=== PATIENT | female | born 1955 | race Caucasian/White ===

== ENCOUNTER 2017-03-28 20:40 | Inpatient (IN) | payer SELFPAY ==
[~2017-03-28] VITALS: Ht 170.2 cm; Wt 85.5 kg
[2017-03-28 20:43] VITALS: RESP 18; O2SAT 98
[2017-03-28 20:58] VITALS: BP_SYST 189; BP_SYST 203; BP_DIAS 102; BP_DIAS 103; PULSE 93; RESP 18
[2017-03-28 21:00] VITALS: O2SAT 97
[2017-03-28] MEDS ORDERED: MORPHINE SULFATE 4 MG/ML INJ IV PUSH ONE (21:00)
[2017-03-28 21:21] LABS: APTT (PATIENT) 28.9 SEC (24.3-30.1); INTERNATIONAL NORMALIZED RATIO 0.9 RATIO; PROTHROMBIN TIME - PATIENT 9.8 SEC (9.8-11.6)
[2017-03-28 21:23] LABS: AUTOMATED NEUTROPHIL # 3.4 TH/MM3 (1.8-7.7); BASOPHIL % 0.3 % (0.0-2.0); EOSINOPHIL # 0.1 TH/MM3 (0-0.4); EOSINOPHIL % 1.5 % (0.0-4.0); HEMATOCRIT 39.7 % (35.0-46.0); HEMO FLAGS DIFF FINAL; LYMPH % 37.1 % (9.0-44.0); LYMPHOCYTE # 2.4 TH/MM3 (1.0-4.8); MEAN CELL VOLUME 88.4 FL (80.0-100.0); MEAN CORPUSCULAR HEMOGLOBIN 29.5 PG (27.0-34.0); MEAN CORPUSCULAR HGB CONC 33.4 % (32.0-36.0); MONO % 8.9 % (0.0-8.0); NEUT % 52.2 % (16.0-70.0); PLATELET COUNT 212 TH/MM3 (150-450); RED BLOOD COUNT 4.49 MIL/MM3 (4.00-5.30); RED CELL DISTRIBUTION WIDTH 13.5 % (11.6-17.2); WHITE BLOOD COUNT 6.4 TH/MM3 (4.0-11.0)
--- NOTE | 2017-03-28 21:28 | RADRPT ---
EXAM DATE/TIME: 03/28/2017 20:58 [facility] COMPARISON: No previous studies available for comparison. INDICATIONS : Chest pain starting today MEDICAL HISTORY : None. SURGICAL HISTORY : None. ENCOUNTER: Initial ACUITY: 1 day PAIN SCORE: 5/10 LOCATION: Bilateral chest FINDINGS: A single view of the chest demonstrates the lungs to be symmetrically aerated without evidence of mas s, infiltrate or effusion. The cardiomediastinal contours are unremarkable. Osseous structures are intact. CONCLUSION: No evidence of acute cardiopulmonary disease. Nima Bartlett MD on March 28, 2017 at 21:26 Board Certified Radiologist. This report was verified electronically.
[2017-03-28 21:33] LABS: CREATINE KINASE 106 U/L (26-192)
[2017-03-28 21:36] LABS: ANION GAP 6 MEQ/L (5-15); BICARBONATE 29.1 MEQ/L (21.0-32.0); BLOOD UREA NITROGEN 19 MG/DL (7-18); CHLORIDE 104 MEQ/L (98-107); GLOMERULAR FILTRATION RATE 59 ML/MIN (>89); POTASSIUM 4.2 MEQ/L (3.5-5.1); SODIUM (NA) 139 MEQ/L (136-145)
[2017-03-28 21:45] LABS: CKMB 1.1 NG/ML (0.5-3.6)
[2017-03-28] MEDS ORDERED: HEPARIN-D5W 25,000 U/250 ML 250 ML IV PRN (22:30)
[2017-03-28] MEDS ORDERED: HEPARIN SODIUM - IV 10,000 UNITS/10 ML VIAL IV ONE (22:30)
--- NOTE | 2017-03-28 22:41 | HHI.HP ---
[facility] No Primary Care Physician Admission Diagnosis NSTEMI Diagnoses: (1) NSTEMI (non-ST elevated myocardial infarction) Diagnosis: Principal (2) HTN (hypertension) Diagnosis: Principal (3) Dehydration Diagnosis: Principal Travel History International Travel<30 Days: No Contact w/Intl Traveler <30 Da: No Traveled to Known Affected Are: No History of Present Illness This is a 62-year-old female with no reported PMH who was brought to the ER by EMS with complaints of chest pain x2-3 days. Reports pain worse w/ exertion, occasional radiation to neck. No h/o similar symptoms in the past. Denies SOB or cough. On arrival, BP 203/102, HR 93, O2 sat 97% on 2L NC, Afebrile. CBC essentially unremarkable. Chemistry unremarkable except for GFR 59. Troponin 0.18. INR 0.9. EKG with LBBB, no previous EKG for comparison. Dr. Elkins consulted by ER physician, recommended anticoagulation w/ Heparin and possible cath in am. Pt currently chest pain free. Review of Systems Except as stated in HPI: all other systems reviewed are Neg ROS: 14 point review of systems otherwise negative. Past Family Social History Past Medical History PMH: None Past Surgical History PAST SURGICAL HISTORY: Gynecologic Surgery Allergies: Coded Allergies: No Known Allergies (Unverified , 03/28/17) Family History PAST FAMILY HISTORY: Reviewed. No h/o DM or CAD Social History PAST SOCIAL HISTORY: Negative for alcohol, tobacco or drugs. Physical Exam Vital Signs Vital Signs Date Time Temp Pulse Resp B/P (MAP) Pulse Ox O2 Delivery O2 Flow Rate FiO2 03/28/17 21:00 97 03/28/17 21:00 97 Nasal Cannula 2.00 03/28/17 20:58 93 18 203/102 (135) 189/103 (131) 03/28/17 20:54 97 Nasal Cannula 2.00 03/28/17 20:43 18 98 Physical Exam PE: GENERAL: Middle-aged female in no acute distress. HEENT: PERRLA, EOMI. No scleral icterus or conjunctival pallor. No lid lag or facial droop. CARDIOVASCULAR: Regular rate and rhythm. No obvious murmurs to auscultation. No chest tenderness to palpation. RESPIRATORY: No obvious rhonchi or wheezing. Clear to auscultation. Breath sounds equal bilaterally. GASTROINTESTINAL: Abdomen soft, non-tender, nondistended. BS normal. MUSCULOSKELETAL: Extremities without clubbing, cyanosis, or edema. No obvious deformities. NEUROLOGICAL: Awake, alert and oriented x4. No focal neurologic deficits. Moving both upper and lower extremities spontaneously. Laboratory Laboratory Tests Test 03/28/17 20:51 White Blood Count 6.4 Red Blood Count 4.49 Hemoglobin 13.3 Hematocrit 39.7 Mean Corpuscular Volume 88.4 Mean Corpuscular Hemoglobin 29.5 Mean Corpuscular Hemoglobin Concent 33.4 Red Cell Distribution Width 13.5 Platelet Count 212 Mean Platelet Volume 6.8 Neutrophils (%) (Auto) 52.2 Lymphocytes (%) (Auto) 37.1 Monocytes (%) (Auto) 8.9 Eosinophils (%) (Auto) 1.5 Basophils (%) (Auto) 0.3 Neutrophils # (Auto) 3.4 Lymphocytes # (Auto) 2.4 Monocytes # (Auto) 0.6 Eosinophils # (Auto) 0.1 Basophils # (Auto) 0.0 CBC Comment DIFF FINAL Differential Comment Prothrombin Time 9.8 Prothromb Time International Ratio 0.9 Activated Partial Thromboplast Time 28.9 Blood Urea Nitrogen 19 Creatinine 0.95 Random Glucose 119 Calcium Level 9.1 Sodium Level 139 Potassium Level 4.2 Chloride Level 104 Carbon Dioxide Level 29.1 Anion Gap 6 Estimat Glomerular Filtration Rate 59 Total Creatine Kinase 106 Creatine Kinase MB 1.1 Troponin I 0.18 Lipase 179 Result Diagram: 03/28/17205003/28/172050 Caprini VTE Risk Assessment Caprini VTE Risk Assessment: Mod/High Risk (score >= 2) Caprini Risk Assessment Model Point Value = 1 Point Value = 2 Point Value = 3 Point Value = 5 Age 41-60 Minor surgery BMI > 25 kg/m2 Swollen legs Varicose veins or History of unexplained or recurrent spontaneous Oral contraceptives or hormone replacement Sepsis (< 1 month) Serious lung disease, including pneumonia (< 1 month) Abnormal pulmonary function Acute myocardial infarction Congestive heart failure (< 1 month) History of inflammatory bowel disease Medical patient at bed rest Age 61-74 Arthroscopic surgery Major open surgery (> 45 min) Laparoscopic surgery (> 45 min) Malignancy Confined to bed (> 72 hours) Immobilizing plaster cast Central venous access Age >= 75 History of VTE Family history of VTE Factor V Leiden Prothrombin [id number] Lupus anticoagulant Anticardiolipin antibodies Elevated serum homocysteine Heparin-induced thrombocytopenia Other congenital or acquired thrombophilia Stroke (< 1 month) Elective arthroplasty Hip, pelvis, or leg fracture Acute spinal cord injury (< 1 month) Prophylaxis Regimen Total Risk Factor Score Risk Level Prophylaxis Regimen 0-1 Low Early ambulation 2 Moderate Order ONE of the following: *Sequential Compression Device (SCD) *Heparin 5000 units SQ BID 3-4 Higher Order ONE of the following medications: *Heparin 5000 units SQ TID *Enoxaparin/Lovenox 40 mg SQ daily (WT < 150 kg, CrCl > 30 mL/min) *Enoxaparin/Lovenox 30 mg SQ daily (WT < 150 kg, CrCl > 10-29 mL/min) *Enoxaparin/Lovenox 30 mg SQ BID (WT < 150 kg, CrCl > 30 mL/min) AND/OR *Sequential Compression Device (SCD) 5 or more Highest Order ONE of the following medications: *Heparin 5000 units SQ TID (Preferred with Epidurals) *Enoxaparin/Lovenox 40 mg SQ daily (WT < 150 kg, CrCl > 30 mL/min) *Enoxaparin/Lovenox 30 mg SQ daily (WT < 150 kg, CrCl > 10-29 mL/min) *Enoxaparin/Lovenox 30 mg SQ BID (WT < 150 kg, CrCl > 30 mL/min) AND *Sequential Compression Device (SCD) Assessment and Plan Problem List: (1) NSTEMI (non-ST elevated myocardial infarction) ICD Code: I21.4 - Non-ST elevation (NSTEMI) myocardial infarction Status: Acute (2) HTN (hypertension) ICD Code: I10 - Essential (primary) hypertension (3) Dehydration ICD Code: E86.0 - Dehydration Assessment and Plan A/P: 1. NSTEMI: intermittent c/o chest pain w/ exertion x2-3 days, Trop 0.18, EKG w / LBBB no previous EKG for comparison. Dr. Elkins consulted by ER physician, recommended anticoagulation w/ possible cath in am. Keep NPO, IVF, continue Heparin gtt, NTG/Morphine prn. Check serial trop, check lipid profile, TSH, Hgb A1c. Start Metoprolol, Statin and ASA. 2. HTN: BP 203/102, HR 93 on arrival, currently 164/86, HR 75. Start Metoprolol. Monitor BP. 3. Dehydration: GFR 59, BUN 19, Creatinine normal. IVF for hydration, repeat labs in am. 4. DVT Prophylaxis: Heparin gtt 5. Social work for d/c planning as needed. 6. Case discussed w/ ER physician at length. Physician Certification 2 Midnight Certification Type: Admission for Inpatient Services Order for Inpatient Services The services are ordered in accordance with Medicare regulations or non- Medicare payer requirements, as applicable. In the case of services not specified as inpatient-only, they are appropriately provided as inpatient services in accordance with the 2-midnight benchmark. Estimated LOS (days): 2 days is the estimated time the patient will need to remain in the hospital, assuming treatment plan goals are met and no additional complications. Post-Hospital Plan: Not yet determined Eliane Aguilar MD Mar 28, 2017 22:41
[2017-03-28] MEDS ORDERED: LACTULOSE SYRUP 20 GM/30 ML CUP PO PRN (22:45)
[2017-03-28] MEDS ORDERED: ONDANSETRON HCL 4 MG/2 ML VIAL IVP PRN (22:45)
[2017-03-28] MEDS ORDERED: MAGNESIUM HYDROXIDE SUSP 30 ML CUP PO PRN (22:45)
[2017-03-28] MEDS ORDERED: ACETAMINOPHEN 325 MG TAB PO PRN (22:45)
[2017-03-28] MEDS ORDERED: SENNOSIDES 8.6 MG TAB PO PRN (22:45)
[2017-03-28] MEDS ORDERED: NITROGLYCERIN 2% OINT 1 GM PACKET TOPICAL PRN (22:45)
[2017-03-28] MEDS ORDERED: ACETAMINOPHEN/HYDROcodone 325 MG/5 MG TAB PO PRN (22:45)
[2017-03-28] MEDS ORDERED: BISACODYL 10 MG SUPP RECTAL PRN (22:45)
[2017-03-28] MEDS ORDERED: SODIUM CHLORIDE 0.9% FLUSH 10 ML FLUSH IV FLUSH PRN (22:45)
[2017-03-28] MEDS: SODIUM CHLOR 0.9% 1000 ML INJ 1,000 ML IV SCH (23:13)
[2017-03-28] MEDS: MORPHINE SULFATE 4 MG/ML INJ IV PUSH PRN (23:14)
[2017-03-28 23:53] VITALS: BP 164/86; PULSE 75; RESP 18; O2SAT 97
[2017-03-29] VITALS (22 sets, daily range): BP systolic 65–167; BP diastolic 52–96; PULSE 47–87; RESP 16–18; TEMP 96.3–98.3; O2SAT 94–100
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
[2017-03-29] MEDS ORDERED: HEPARIN SODIUM - IV 10,000 UNITS/10 ML VIAL IV PRN ×2 (04:30)
[2017-03-29 04:49] LABS: APTT (PATIENT) 76.2 SEC (24.3-30.1)
[2017-03-29] MEDS: SODIUM CHLORIDE 0.9% FLUSH 10 ML FLUSH IV FLUSH SCH ×2 (07:49→21:33)
[2017-03-29] MEDS ORDERED: PRAVASTATIN SOD 40 MG TAB PO SCH (09:00)
[2017-03-29] MEDS ORDERED: NITROGLYCERIN 0.4 MG SL 25 TABS/BTL SL ONE (09:00)
--- NOTE | 2017-03-29 09:18 | EKG ---
Date Performed: 03/28/2017 Time Performed: 20:42:18 PTAGE: 62 years EKG: Sinus rhythm LEFT BUNDLE BRANCH BLOCK ABNORMAL ECG NO PREVIOUS TRACING DOCTOR: Christophe Oh Interpretating Date/Time 03/29/2017 09:16:36
[2017-03-29] MEDS: SODIUM CHLOR 0.9% 1000 ML INJ 1,000 ML IV SCH (10:05)
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
[2017-03-29] MEDS: ASPIRIN EC 81 MG TABEC PO SCH (10:37)
[2017-03-29] MEDS: METOPROLOL TARTRATE 25 MG TAB PO SCH ×3 (10:37→21:33)
[2017-03-29] MEDS: DOCUSATE SODIUM 50 MG/SENNA 8.6 MG TAB PO SCH ×2 (10:38→21:00)
[2017-03-29] MEDS: MORPHINE SULFATE 4 MG/ML INJ IV PUSH PRN (13:56)
[2017-03-29 14:11] LABS: AUTOMATED NEUTROPHIL # 5.1 TH/MM3 (1.8-7.7); BASOPHIL % 0.4 % (0.0-2.0); EOSINOPHIL % 0.3 % (0.0-4.0); HEMATOCRIT 39.8 % (35.0-46.0); HEMO FLAGS DIFF FINAL; LYMPH % 20.2 % (9.0-44.0); LYMPHOCYTE # 1.4 TH/MM3 (1.0-4.8); MEAN CELL VOLUME 89.2 FL (80.0-100.0); MEAN CORPUSCULAR HGB CONC 33.7 % (32.0-36.0); MONO % 5.3 % (0.0-8.0); NEUT % 73.8 % (16.0-70.0); PLATELET COUNT 177 TH/MM3 (150-450); RED BLOOD COUNT 4.46 MIL/MM3 (4.00-5.30); RED CELL DISTRIBUTION WIDTH 13.5 % (11.6-17.2); WHITE BLOOD COUNT 6.9 TH/MM3 (4.0-11.0)
[2017-03-29 14:34] LABS: ANION GAP 7 MEQ/L (5-15); AST (GOT) 19 U/L (15-37); BICARBONATE 24.3 MEQ/L (21.0-32.0); BLOOD UREA NITROGEN 10 MG/DL (7-18); CHLORIDE 106 MEQ/L (98-107); GLOMERULAR FILTRATION RATE 92 ML/MIN (>89); POTASSIUM 3.9 MEQ/L (3.5-5.1); SODIUM (NA) 137 MEQ/L (136-145)
[2017-03-29 14:35] LABS: ALT (GPT) 34 U/L (10-53)
[2017-03-29 14:45] LABS: ALKALINE PHOSPHATASE 80 U/L (45-117); HDL CHOLESTEROL 57.9 MG/DL (40.0-60.0); LDL CHOLESTEROL 181 MG/DL (0-99); TOTAL BILIRUBIN ADULT 0.3 MG/DL (0.2-1.0)
[2017-03-29] MEDS ORDERED: IOHEXOL 350 MG/ML 10 ML VIAL (for RAD DIAG) IVCONTRAST ONE (15:07)
--- NOTE | 2017-03-29 15:36 | RADRPT ---
EXAM DATE/TIME: 03/29/2017 14:38 [facility] COMPARISON: No previous studies available for comparison. INDICATIONS : Upper back pain. IV CONTRAST: 75 cc Omnipaque 350 (iohexol) IV RADIATION DOSE: 9.96 CTDIvol (mGy) MEDICAL HISTORY : None SURGICAL HISTORY : None. ENCOUNTER: Initial ACUITY: 1 day PAIN SCALE: 5/10 LOCATION: Bilateral chest TECHNIQUE: Volumetric scanning of the chest was performed using a pulmonary embolism protocol MIP images were re constructed. Using automated exposure control and adjustment of the mA and/or kV according to patien t size, radiation dose was kept as low as reasonably achievable to obtain optimal diagnostic quality images. DICOM format image data is available electronically for review and comparison. Follow-up recommendations for detected pulmonary nodules are based at a minimum on nodule size and pa tient risk factors according to Fleischner Society Guidelines. FINDINGS: PULMONARY ARTERIES: The pulmonary arteries are visualized in the proximal segmental level without evidence for intralumin al filling defect. Main pulmonary arteries normal in caliber. AORTA: Descending aorta is ectatic measuring up to 3.8 cm. The thoracic aorta is normal in caliber without e vidence for dissection or aneurysm. There is standard 3 vessel arch anatomy. Proximal arch vessels ar e grossly patent. LUNGS: Mild airspace consolidation noted in the posterior bases bilaterally. PLEURAE: There is no pleural thickening or pleural effusion. MEDIASTINUM: No significant mediastinal adenopathy. Mild coronary artery calcifications. Heart is grossly unremark able. MUSCULOSKELETAL: Within normal limits for patient age. MISCELLANEOUS: These as portions of the upper abdomen demonstrate diffusely decreased hepatic density. No evidence f or hepatic volume loss or gross focal mass. CONCLUSION: 1. 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 2. Otherwise, no evidence for thoracic aortic dissection or aneurysm. 3. No evidence for pulmonary embolism to the proximal segmental level. More distal pulmonary arteries are incompletely evaluated 4. Mild bibasilar airspace consolidation, likely atelectasis. 5. Mild coronary artery cavitations. 6. Hepatic steatosis. Anshul Ventura MD on March 29, 2017 at 15:29 Board Certified Radiologist. This report was verified electronically.
[2017-03-29] MEDS ORDERED: IOHEXOL 350 MG/ML 50 ML BTL (for Cath Lab) OTHER ONE (16:15)
[2017-03-29] MEDS ORDERED: IOHEXOL 350 MG/ML 100 ML BTL (for Cath Lab) OTHER ONE (16:15)
[2017-03-29] MEDS ORDERED: HEPARIN-NS/PF INJ 1,000 ML ONE (16:18)
[2017-03-29] MEDS ORDERED: SODIUM CHLORID 0.9% 500 ML INJ 500 ML ONE (16:19)
[2017-03-29] MEDS ORDERED: MIDAZOLAM HCL 2 MG/2 ML VIAL ONE (16:24)
[2017-03-29] MEDS ORDERED: VERAPAMIL HCL 5 MG/2 ML VIAL ONE (16:24)
[2017-03-29] MEDS ORDERED: HEPARIN SODIUM - IV 10,000 UNITS/10 ML VIAL ONE (16:24)
[2017-03-29] MEDS ORDERED: MIDAZOLAM HCL 2 MG/2 ML VIAL IV ONE (16:26)
[2017-03-29] MEDS ORDERED: HEPARIN SODIUM - IV 10,000 UNITS/10 ML VIAL IV ONE (16:56)
[2017-03-29] MEDS ORDERED: TICAGRELOR 90 MG TAB PO ONE ×2 (17:26→18:15)
[2017-03-29] MEDS ORDERED: hydrALAZINE HCL 20 MG/ML VIAL ONE (17:39)
[2017-03-29] MEDS ORDERED: hydrALAZINE HCL 20 MG/ML VIAL IV ONE (17:45)
[2017-03-29] MEDS ORDERED: SODIUM CHLOR 0.9% 1000 ML INJ 1,000 ML IV SCH (17:57)
--- NOTE | 2017-03-29 17:59 | CATHPROC ---
Yippy HIS Report Study Information Study Number Admission Scheduled Start Study Start [id number] Mar 28 2017 10:33PM 03/29/2017 Mar 29 2017 4:16PM [place] [facility] Cardiac Catheterization Admit Source Facility Department Emergency department [facility] - Blood Splatter Analyst Physician and Clinical Staff Initial Michael Ann Community Board Member Corby Mckee,BLANQUITA Other Jani Perez RCIS(BS) Recorder Oanh Sierra RCIS TECH2 Scrub Suze Murphy,(R) Procedures Performed Procedure Location (Site) Vessel Name Coronary Angiograms LCA Left Coronary Coronary Angiograms RCA Right Coronary Drug Eluting Inflatio RCA Mid Right Coronary PTCA RCA Mid Right Coronary Wire insertion Radial (right) Radial Art. Equipment Time Pharmaceutical Assistant Description Size Mfg Part Number Used/Scraped STENT, 3.25 X 12MM XIENCE [id number] 17:12 [employer] 3.25 X 12 Used ALPINE *[id number] STENT, 3.25 X 8MM XIENCE [id number] 17:22 [employer] 3.25 X 8 Used ALPINE *[id number] WIRE, BALANCE MIDDLEWEIGHT [id number] 16:49 [employer] 190CM Used 190CM *[id number] TRANSDUCER, TRUWAVE [id number] 16:31 ORTEGA DUNN * Used W/STOCKCOCK *[id number] 17:09 [employer] BALLOON, 2.0 8MM EMERGE MR 2.0 8MM Used *[id number] *[id number] *[id number] [id number] *[id number] 534-521T *[id number] WIRE, HYDROSTEER 150CM [id number] 16:34 [facility] [facility] 150CM Used ANGLED GLIDE *[id number] 16:31 MEDLINE [employer] PACK, CCL CUSTOM * Used *[id number] 16:31 Taggstr SUPPORT, ARTERIAL ADULT 25195 *[id number] Used BALLOON, 3.25 X 15MM NC [id number] 17:29 MEDTRONIC 15MM Used EUPHORA *[id number] 17:09 [facility] 30 CARI INDEFLATOR Used *[id number] BAND, RADIAL COMPRESSION TR [id number] 17:32 [facility] 24CM Used SHORT 24 *[id number] 16:31 [facility] WIRE, EXCHANGE 260CM 3MMJ 260CM Used *[id number] 16:31 NAMIC MANIFOLD, 4 PORT * Used *[id number] 16:31 NYCOMED OMNIPAQUE, 350 MG, 150ML 150ML [id number] Used [id number] 16:31 [employer] BLANKET,WARM AIR CCL * Used *[id number] SHEATH, FR6 TRANSRADIAL [id number] 16:31 [employer] FR 6 Used SLENDER 10CM *[id number] Equipment Model, Serial, Lot Number and Expiration Data Description Model Number Serial Number Lot Number Expiration Date 30 CARI INDEFLATOR [id number] 01-10-2019 BALLOON, 3.25 X 15MM NC [id number] 01-10-2019 EUPHORA STENT, 3.25 X 12MM XIENCE [id number] 05-06-2019 ALPINE STENT, 3.25 X 8MM XIENCE ALPINE [id number] 11-16-2017 WIRE, HYDROSTEER 150CM [id number] 10-12-2019 ANGLED GLIDE History: Allergies Allergy Reaction No Known Allergies History: Risk Factors Family History of Hypertension Dyslipidemia Previous DE Previous Heart Failure Premature CAD No No No No No Prior Valve Prior PCI Prior CABG Surgery No No No Cerebrovascular Peripheral Artery Chronic Lung On Dialysis Diabetes Disease Disease Disease No No No No No History: Symptoms/Diagnosis Selection Items Chest pain History: Stress Tests Stress or Imaging Studies Performed No History: Other Current Smoker No Labs Hgb (g/dl) Hct (%) WBC (l/cumm) Platelets (thousands) 11.60-17.00 35.00-51.00 4.00-11.00 150.00-450.00 13.4 39.8 6.9 177 Glucose (mg/dl) BUN (mg/dl) Creatinine (mg/dl) BUN:Creatinine (1:x) 74.00-106.00 7.00-18.00 0.50-1.30 10.00-20.00 112 10 0.6 16.7 Na (meq/l) K (meq/l) Cl (meq/l) CO2 (mmol/L) Ca (mg/dl) 136.00-145.00 3.50-5.10 98.00-107.00 21.00-32.00 8.50-10.10 137 3.9 106 24.3 8.3 PT (sec) PTT (sec) INR (PTT:PT) 9.80-11.60 24.30-30.10 0.90-1.10 9.8 45 0.9 Troponin I (ng/ml) CPK (u/l) CPK-MB (ng/ML) 0.02-0.05 26.00-308.00 0.50-3.60 0.14 106 1.1 Medication Medication Total Dose (Bolus/Oral) Medication Total Dosage/Unit 1% XYLOCAINE 20 mL BRILINTA 180 mg FENTANYL 25 mcg HEPARIN 3000 units HYDRALAZINE 10 mg NTG (IC) 100 mcg RADIAL COCKTAIL 5 mL (Bolus) VERSED 0.5 mg Medications (Bolus/Oral) Medication Time Given Dosage/Unit Administered By Reason VERSED 03/29/2017 4:26:17 PM 0.5 mg Corby Mckee 0.5 mg VERSED given in lab by Corby Mckee RN in Left Antecubital via Peripheral IV. Ordered by Michael Jaquez. FENTANYL 03/29/2017 4:27:59 PM 25 mcg Corby Mckee 25 mcg FENTANYL given in lab by Corby Mckee RN in Left Antecubital via Peripheral IV. Ordered by Michael Elkins. 1% XYLOCAINE 03/29/2017 4:28:27 PM 20 mL Michael Elkins 20 mL 1% XYLOCAINE given in lab by Mihcael Elkins in Right Radial via Subcutaneous. RADIAL COCKTAIL 03/29/2017 4:30:30 PM 5 mL (Bolus) Michael Elkins 5 mL (Bolus) RADIAL COCKTAIL given in lab by Michael Elkins in Right Radial via Radial. Using [Stella ution Name]. 2.5 mg Verapamil, 3600u Heparin HEPARIN 03/29/2017 4:56:52 PM 3000 units Corby Mckee 3000 units HEPARIN given in lab by Corby Mckee RN in Left Antecubital via Peripheral IV. Ordered by Michael Elkins. NTG (IC) 03/29/2017 5:20:50 PM 100 mcg Michael Elkins 100 mcg NTG (IC) given in lab by Michael Elkins via Intra-coronary to RCA. Ordered by Jasmyn Elkins. HYDRALAZINE 03/29/2017 5:40:40 PM 10 mg Corby Mckee 10 mg HYDRALAZINE given in lab by Corby Mckee, BLANQUITA in Left Antecubital via Peripheral IV. Ordered b Michael Mackay. BRILINTA 03/29/2017 5:41:16 PM 180 mg Corby Mckee 180 mg BRILINTA given in lab by Corby Mckee, BLANQUITA via Oral. Ordered by Michael Elkins. Medication (Drip) Medication Time Given Dosage/Unit Concentration/Unit Diluent (ml) Solutio n IV Solutions 03/29/2017 4:17:50 PM 0 mL (IV) 500 NaCl .9 Patient arrived on IV Solutions in Left Antecubital via Peripheral IV. Pump/Drip Flow = 20 ml/hr usin g NaCl .9. Initial Case Assessment Cardiovascular HR Rhythm NIBP Chest Pain 85 LBBB 185/118 7 Circulatory - Right Pulses Dorsalis Pedis Femoral Radial 1 1 1 Scale (0,1,2,3,4,d) Circulatory - Left Pulses Dorsalis Pedis Femoral Radial 1 1 Scale (0,1,2,3,4,d) Neurological State Oriented to time-place- Alert Moves all extremities person Respiration - General Respiration Rate SpO2 (%) (B/min) 15 95 Final Case Assessment Cardiovascular HR Rhythm NIBP Chest Pain 70 LBBB 180/104 1 Circulatory - Right Pulses Dorsalis Pedis Femoral Radial 1 1 1 Scale (0,1,2,3,4,d) Circulatory - Left Pulses Dorsalis Pedis Femoral Radial 1 1 Scale (0,1,2,3,4,d) Neurological State Oriented to time-place- Alert Moves all extremities person Respiration - General Respiration Rate SpO2 (%) (B/min) 16 95 Chronological Log Time Study Chronological Log 16:15:54 Patient arrived via Bed. 16:15:54 Patient Name, D.O.B, / Armband Verified By R.N. 16:15:56 Pre-op and post- op instructions given; patient acknowledges understanding of instructions. 16:15:57 Verbal Stimulation=2 Physical Stimulation=2 Airway=2 Respiration=2 TOTAL=8. (0=absent, 1=li mited, 2=present) 16:16:00 Skin Breakdown-none 16:16:58 Presedation assessment performed by Blood Splatter Analyst RN. 16:17:00 Patient has been NPO for More than 6Hrs. 16:17:40 A # 20 IV was noted in the Antecubital (left). Grade = pataent 16:17:50 Patient arrived on IV Solutions in Left Antecubital via Peripheral IV. Pump/Drip Flow = 20 ml/hr using NaCl .9. 16:18:10 Bilateral groins and right radial prepped with 2% chlorhexidine, and draped after a 3 min. waiting time. 16:20:12 MD arrived. 16:20:55 Consent signed by the physician and the patient and verified by the Blood Splatter Analyst staff. Vitals capture started with the following parameters, Patient=Adult, Interval=5 min, Initial Pr fzwvsg=919 mmHg, 16:21:41 Deflation Rate=5 mmHg, Cuff placed on Left Arm 16:22:02 Sixto Prominences Protected 16:22:06 History and physical on the chart or being dictated. 16:22:24 HR=99 bpm, YJYS=647/135 mmhg, SpO2=97.0 %, Resp=13 B/min Assessment: Initial Case, HR=85 BPM, Rhythm=LBBB, JCAZ=166/118 mmhg, Chest Pain=7 Right Pulses: Jarrod Ped=1, Femoral=1, Radial=1 16:22:27 Left Pulses: Jarrod Ped=1, Femoral=1 Neurological: State=Alert, Ox3, ZHOU Respiration: Resp=15 B/min, SpO2=95 % 16:26:17 0.5 mg VERSED given in lab by Corby Mckee, BLANQUITA in Left Antecubital via Peripheral IV. Ord ered by Michael Elkins. 16:27:23 HR=89 bpm, NNYS=680/118 mmhg, SpO2=96.0 %, Resp=15 B/min Time Out. Correct patient, correct procedure,correct physician, power injector not loaded with contrast with surgical 16::43 team present. Time Out Concurred by MD and individual staff in procedure 16::59 25 mcg FENTANYL given in lab by Corby Mckee, BLANQUITA in Left Antecubital via Peripheral IV. O rdered by Michael Elkins. :: Case Start 16:28:27 20 mL 1% XYLOCAINE given in lab by Michael Elkins in Right Radial via Subcutaneous. 16:29:00 Pressure channel 1 zeroed. 16:29:37 Access site was Radial Artery. A SHEATH, FR6 TRANSRADIAL SLENDER 10CM FR 6 was advanced into the Radial (right) using the Perc utaneous 16:30:26 technique. 5 mL (Bolus) RADIAL COCKTAIL given in lab by Michael Elkins in Right Radial via Radial. Marquis g [Solution Name]. 2.5 16:30:30 mg Verapamil, 3600u Heparin A JR 4.0 INFINITI CATHETER FR 5 was advanced over a wire. OMNIPAQUE, 350 MG, 150ML 150ML was us ed for 16:30:40 injections. 16:32:22 HR=84 bpm, KSSX=287/93 mmhg, SpO2=93.0 %, Resp=14 B/min 16:33:00 The previous wire was exchanged for a WIRE, HYDROSTEER 150CM ANGLED GLIDE 150CM. 16:35:23 Wire removed Recorded Pressure: LV, HR=80, Condition=Condition 1 16:36:04 (Left Ventricle) LV 156/6/13 16:36:13 Reference ECG taken Recorded Pressure: LV, Ao, HR=79, Condition=Condition 1 16:36:29 (Left Ventricle) LV 153/7/13, (Aorta) Ao 151/81/110 16:37:17 HR=80 bpm, PLHV=661/94 mmhg, SpO2=93 %, Resp=15 B/min 16:37:38 The RCA was injected and visualized at various angles. OMNIPAQUE, 350 MG, 150ML 150ML used . After removing the current catheter a JL 3.5 INFINITI CATHETER FR 5 was advanced over a WIRE, E XCHANGE 260CM 16:37:48 3MMJ 260CM. 16:42:16 HR=79 bpm, YGHJ=974/103 mmhg, SpO2=90.0 %, Resp=14 B/min 16:43:41 The LCA was injected and visualized at various angles. OMNIPAQUE, 350 MG, 150ML 150ML used . 16:47:19 HR=77 bpm, ULNR=458/105 mmhg, SpO2=92 %, Resp=13 B/min After removing the current catheter a JR 4.0 GUIDE CATHETER FR 6 was advanced over a WIRE, EXCH STEPAN 260CM 16:50:35 3MMJ 260CM. 16:52:18 HR=73 bpm, VVGH=694/100 mmhg, SpO2=91.0 %, Resp=15 B/min 16:52:52 Activated Clotting Time Drawn 16:56:12 ACT (Normal Range 90-180) = 219 3000 units HEPARIN given in lab by Corby Mckee RN in Left Antecubital via Peripheral IV. Or dered by Severo 16:56:52 Michael. 16:57:19 HR=73 bpm, SNPU=462/101 mmhg, SpO2=93.0 %, Resp=14 B/min 17:01:12 The RCA was injected and visualized at various angles. OMNIPAQUE, 350 MG, 150ML 150ML used . 17:01:56 A WIRE, BALANCE MIDDLEWEIGHT 190CM 190CM was inserted via Radial (right). 17:02:18 HR=74 bpm, FCVC=705/113 mmhg, SpO2=93.0 %, Resp=14 B/min 17:05:41 Activated Clotting Time Drawn A BALLOON, 2.0 8MM EMERGE MR 2.0 8MM was inserted over WIRE, BALANCE MIDDLEWEIGHT 190CM 190CM v ia the 17:07:17 RCA Mid. 17:07:21 HR=72 bpm, WDXP=533/101 mmhg, SpO2=93 %, Resp=15 B/min A BALLOON, 2.0 8MM EMERGE MR 2.0 8MM over a WIRE, BALANCE MIDDLEWEIGHT 190CM 190CM in the RCA M id was 17:08:37 inflated using a 30 CARI INDEFLATOR at 8 cari for 15 sec. A BALLOON, 2.0 8MM EMERGE MR 2.0 8MM over a WIRE, BALANCE MIDDLEWEIGHT 190CM 190CM in the RCA M id was 17:09:30 inflated using a 30 CARI INDEFLATOR at 14 cari for 10 sec. 17:10:08 Balloon Removed. 17:10:54 ACT (Normal Range 90-180) = 281 17:12:24 HR=75 bpm, VTKB=943/115 mmhg, SpO2=91.0 %, Resp=16 B/min A STENT, 3.25 X 12MM XIENCE ALPINE 3.25 X 12 was advanced through a JR 4.0 GUIDE CATHETER FR 6 over a WIRE, 17:13:14 BALANCE MIDDLEWEIGHT 190CM 190CM. A STENT, 3.25 X 12MM XIENCE ALPINE 3.25 X 12 was deployed using a 30 CARI INDEFLATOR at 10 atmos pheres for 17:14:39 30 seconds in the RCA Mid. 17:16:15 Delivery device removed 17:17:25 HR=72 bpm, HECB=571/101 mmhg, SpO2=94 %, Resp=14 B/min 17:20:50 100 mcg NTG (IC) given in lab by Michael Elkins via Intra-coronary to RCA. Ordered by Michael Jaquez. 17:22:22 HR=75 bpm, VIBK=801/102 mmhg, SpO2=91.0 %, Resp=15 B/min A STENT, 3.25 X 8MM XIENCE ALPINE 3.25 X 8 was advanced through a JR 4.0 GUIDE CATHETER FR 6 ov er a WIRE, 17:24:08 BALANCE MIDDLEWEIGHT 190CM 190CM. A STENT, 3.25 X 8MM XIENCE ALPINE 3.25 X 8 was deployed using a 30 CARI INDEFLATOR at 10 atmosph eres for 20 17:24:27 seconds in the RCA Mid. 17:24:55 Re-inflated the stent balloon in the RCA Mid to 12 CARI for 20 seconds. 17:25:24 Delivery device removed 17:27:23 HR=74 bpm, NDWM=734/99 mmhg, SpO2=92 %, Resp=14 B/min A BALLOON, 3.25 X 15MM NC EUPHORA 15MM was inserted over WIRE, BALANCE MIDDLEWEIGHT 190CM 190CM via 17:27:59 the RCA Mid. A BALLOON, 3.25 X 15MM NC EUPHORA 15MM over a WIRE, BALANCE MIDDLEWEIGHT 190CM 190CM in the RCA Mid 17:29:13 was inflated using a 30 CARI INDEFLATOR at 15 cari for 20 sec. A BALLOON, 3.25 X 15MM NC EUPHORA 15MM over a WIRE, BALANCE MIDDLEWEIGHT 190CM 190CM in the RC A Mid 17:31:08 was inflated using a 30 CARI INDEFLATOR at 15 cari for 15 sec. 17:31:36 Balloon Removed. 17:32:11 Wire removed 17:32:25 HR=73 bpm, HFFO=008/106 mmhg, SpO2=92.0 %, Resp=16 B/min 17:36:13 Catheter was removed 17:37:28 HR=64 bpm, PVLY=704/93 mmhg, SpO2=95.0 %, Resp=17 B/min Radial Compression Device Used. 11 mLs of air placed in BAND, RADIAL COMPRESSION TR SHORT 24 2 4CM. Affected 17:38:50 hand 95 % O2 saturation. 17:38:53 NIBP STAT measurement started. 17:39:31 HR=70 bpm, MKLP=579/104 mmhg, Resp=16 B/min 17:40:04 Case End 10 mg HYDRALAZINE given in lab by Corby Mckee, RN in Left Antecubital via Peripheral IV. Or dered by Severo 17:40:40 Michael. 17:41:16 180 mg BRILINTA given in lab by Corby Mckee, RN via Oral. Ordered by Michael Elkins. 17:42:27 MJFJ=894/124 mmhg 17:45:10 No case complications noted. 17:45:11 Cine recording checked. 17:45:13 Bedside Report will be given. Assessment: Final Case, HR=70 BPM, Rhythm=LBBB, WFBT=813/104 mmhg, Chest Pain=1 Right Pulses: Jarrod Ped=1, Femoral=1, Radial=1 17:45:15 Left Pulses: Jarrod Ped=1, Femoral=1 Neurological: State=Alert, Ox3, ZHOU Respiration: Resp=16 B/min, SpO2=95 % 17:45:22 Patient moved to bed 17:47:11 Vitals capture stopped. 17:47:56 Patient transported to [facility] End Study - Contrast Media Used In Study Contrast Total Opened (mL) Total Used (mL) Total Wasted (mL) Omnipaque 110 110 0 End Study - Maximum Contrast Load Max Contrast Load (mL) 741.7 End Study - Radiation Exposure Fluoro Time (minutes) 13.4 End Study - Sheaths Sheaths Pulled By Sheath Hold Time (min) Michael Elkins End Study - Patient Disposition Complications Transferred To Interventional Outcome No Telemetry Bed successful
[2017-03-29] MEDS ORDERED: oxyCODONE/ACETAMINOPHEN 10 MG/325 MG TAB PO PRN (18:00)
[2017-03-29] MEDS ORDERED: MISC INFORMATION XX ONE (18:00)
[2017-03-29] MEDS ORDERED: ACETAMINOPHEN 325 MG TAB PO PRN (18:00)
[2017-03-29] MEDS ORDERED: oxyCODONE/ACETAMINOPHEN 5 MG/325 MG TAB PO PRN (18:00)
--- NOTE | 2017-03-29 19:01 | HHI.PR ---
Subjective Remarks Follow-up on chest pain. Patient was emergently taken to [facility] today due to low blood pressure 60s over 50s - discussed with [facility] Techs. Objective Vital Signs Date Time Temp Pulse Resp B/P (MAP) Pulse Ox O2 Delivery O2 Flow Rate FiO2 03/29/17 15:45 94 Room Air 03/29/17 15:45 98.3 81 16 166/94 (118) 94 03/29/17 13:00 80 03/29/17 12:00 74 03/29/17 11:17 97 Nasal Cannula 2.00 03/29/17 11:17 96.3 69 16 136/74 (94) 100 03/29/17 11:00 68 03/29/17 10:30 47 65/52 (56) 03/29/17 10:00 80 03/29/17 09:00 82 03/29/17 08:00 78 03/29/17 07:51 96 Room Air 03/29/17 07:47 96.3 78 16 127/94 (105) 96 03/29/17 07:00 85 03/29/17 03:45 71 03/29/17 01:27 76 16 138/77 (97) 95 03/29/17 01:10 73 03/29/17 00:45 03/29/17 00:44 97.9 71 16 97 03/28/17 23:53 75 18 164/86 (112) 97 Nasal Cannula 2.00 03/28/17 21:00 97 03/28/17 21:00 97 Nasal Cannula 2.00 03/28/17 20:58 93 18 203/102 (135) 189/103 (131) 03/28/17 20:54 97 Nasal Cannula 2.00 03/28/17 20:43 18 98 I/O 03/28/17 03/28/17 03/28/17 03/29/17 03/29/17 03/29/17 07:00 15:00 23:00 07:00 15:00 23:00 Intake Total 870 ml 480 ml Output Total 550 ml 2800 ml Balance 320 ml -2320 ml Intake Oral 240 ml 480 ml IV Total 630 ml Output Urine Total 550 ml 2800 ml # Bowel Movements 0 Result Diagram: 03/29/17 1350 03/29/17 1350 Imaging Last 24 hours Impressions Chest/Thorax CTA 03/29/17 0000 Signed Impressions: Service Date/Time: Wednesday, March 29, 2017 14:38 - CONCLUSION: 1. 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 2. Otherwise, no evidence for thoracic aortic dissection or aneurysm. 3. No evidence for pulmonary embolism to the proximal segmental level. More distal pulmonary arteries are incompletely evaluated 4. Mild bibasilar airspace consolidation, likely atelectasis. 5. Mild coronary artery cavitations. 6. Hepatic steatosis. Anshul Ventura MD Chest X-Ray 03/28/172044 Signed Impressions: Service Date/Time: Tuesday, March 28, 2017 20:58 - CONCLUSION: No evidence of acute cardiopulmonary disease. Nima Bartlett MD Objective Remarks Patient just coming back in catheter lab Appears drowsy but is easily awoken Heart rate is regular rate and rhythm, no murmurs Lungs are clear to auscultation bilaterally A/P Assessment and Plan A/P: 1. NSTEMI: Underwent emergent catheterization today , Status post stent placement 2, continue aspirin, beta anahi, statin, brillinta 2. Transient hypotension - resolved 3. Dehydration: GFR 59, BUN 19, Creatinine normal. IVF for hydration, repeat labs in am. 4. DVT Prophylaxis: Heparin gtt Monitor closely on CIC w/ tele. Davide Dooley MD Mar 29, 2017 19:01
[2017-03-29] MEDS ORDERED: METOCLOPRAMIDE HCL 10 MG/2 ML VIAL IV ONE (19:45)
[2017-03-29] MEDS: ATORVASTATIN 80 MG TAB PO SCH (21:00)
[2017-03-30] VITALS (29 sets, daily range): BP systolic 124–183; BP diastolic 82–98; PULSE 70–98; RESP 16–18; TEMP 97.5–98.3; O2SAT 96–97
--- NOTE | 2017-03-30 05:08 | MA ---
cc: MICHAEL SOMMER DO DATE: March 29, 2017 PROCEDURE Left heart catheterization, coronary angiogram, Alpine drug-eluting stent x2, (proximal 3.25 x 8, distal 3.25 x 12 overlapped) to the RCA, moderate sedation 75 minutes. PREPROCEDURE DIAGNOSIS NSTEMI, resistant chest pain. POSTPROCEDURE DIAGNOSIS NSTEMI, Alpine drug-eluting stent x2 (proximal 3.25 x 8, distal 3.25 x 12 overlapped) to the RCA. MEDICATIONS Versed 0.5 milligrams. Fentanyl 25 mcg. Verapamil 2.5 mg. Heparin 7000 units. Brilinta 180 mg. Hydralazine 10 milligrams. CONTRAST USED: 110 cc FLUOROSCOPY: 13.4 minutes MODERATE SEDATION: 75 minutes ESTIMATED BLOOD LOSS 10 cc PROCEDURAL SUMMARY: Ms. Pickens is a pleasant 62-year-old female who originally presented to [facility] on March 28, 2017 due to chest pain. She was noted to have an elevation of her troponins and she was recommended cardiac catheterization. Earlier on March 29, 2017, she had further chest pain and I attempted to give her a nitro sublingual which dropped her pressures to 70/40. She responded to some fluids but because she continued to have chest pain and was unable to take nitroglycerin, it was felt reasonable that she should proceed to cardiac catheterization in a more urgent fashion. The risks, benefits and alternatives were explained to her and she consented as such. She was brought to lab and prepped in the usual sterile fashion. Right radial artery was accessed using a modified Seldinger technique and placement of a 5/6 Indian sheath. She was given a radial cocktail of verapamil and heparin. Nitroglycerin was not used due to her previous reaction. A JR-4 was advanced over a J-wire to the mid forearm where there was some resistance. Angiogram shows mild tortuosity of the radial artery was some minor stenosis versus spasm. Glidewire was used to advance through the tortuosity and allowed the JR-4 to advance to the ascending aorta and across the aortic valve for measurement of left ventricular pressure. The JR-4 was then pulled back across the aortic valve showing no significant gradient of aortic stenosis. JR-4 was used for selective angiography of the right coronary artery. This was exchanged out for a JL-3.5 which was used for selective angiography of the left coronary artery. Please see notes below about intervention. Postprocedure a radial band was placed over the arteriotomy site for hemostasis. The patient was given Brilinta 180 milligrams post procedure. The patient left the cath lab manager cardiovascularly stable. FINDINGS Left main: Normal size vessel with adequate reflux. 10% disease distally. It bifurcates into an LAD and circumflex. LAD: Normal-size vessel with 20% disease in the proximal portion. The midportion after the takeoff of the first diagonal has a 30% stenosis at the bifurcation. Distally the LAD tapers down into a small vessel. The diagonal proceeds with an upper and lower branch with the lower branch proceeding as duel LAD. This is overall small vessel and has a 50% stenosis in the mid portion. Because of the significant stenosis in the RCA and her other stenosis being moderate in nature and overall small vessels, I felt that it was reasonable to intervene on her RCA. The patient was given heparin as an additional anticoagulant. A JR-4 guide was advanced and engaged into the right coronary artery. The BMW wire was advanced to the distal portion of the PDA. A Compliant balloon (2 x 8) was then advanced and inflated over the lesion. An Alpine drug-eluting stent (3.25 x 12) was then advanced and inflated over the lesion. Post angiography, there was some mild haziness at the proximal portion. The patient was given 100 mcg of nitroglycerin but still there was concern at the proximal portion. I felt that it was reasonable to place another drug-eluding stent at this point and so an Alpine drug-eluting stent (3.25 x 8) was then advanced and overlapped at the proximal portion of the previous stent. A noncompliant balloon (3.25 x 15) was then used to appose both stents. The wire was removed and post angiography shows a well opposed stent with no perforations or dissections. Distally it was noted that this applied better collaterals to the distal left circumflex. Guide catheter was removed over a J-wire. IMPRESSION 1. NSTEMI. 2. Coronary artery disease status post Alpine drug-eluting stent x2 (proximal 3.25 x 8, distal 3.25 x 12 overlapped) to the RCA. 3. Accelerated hypertension. RECOMMENDATIONS Ms. Pickens underwent PCI for RCA and will be placed on aspirin and Brilinta post procedure. She has been started on beta-anahi and statin therapy will be added to her overall regimen. We will plan on obtaining an echocardiogram to look at her overall left ventricular function, cardiac structure and possible valvulopathy. We will plan on her being in the hospital for 48 hours due to her NSTEMI. Further recommendations will be made based on her hospital course. Thank you for allowing me to see Jessica Nelia. Any questions, please do not hesitate to call. Michael Sommer DO VGP/VERONICA /10:30 PM /4:00 AM
[2017-03-30] MEDS: METOPROLOL TARTRATE 25 MG TAB PO SCH ×2 (08:00→21:15)
[2017-03-30] MEDS ORDERED: LISINOPRIL 5 MG TAB PO SCH (09:00)
[2017-03-30 09:32] LABS: BASOPHIL % 0.2 % (0.0-2.0); EOSINOPHIL % 0.1 % (0.0-4.0); HEMATOCRIT 40.7 % (35.0-46.0); HEMO FLAGS DIFF FINAL; LYMPH % 13.8 % (9.0-44.0); LYMPHOCYTE # 1.3 TH/MM3 (1.0-4.8); MEAN CELL VOLUME 87.9 FL (80.0-100.0); MEAN CORPUSCULAR HEMOGLOBIN 29.5 PG (27.0-34.0); MEAN CORPUSCULAR HGB CONC 33.6 % (32.0-36.0); MONO % 8.6 % (0.0-8.0); NEUT % 77.3 % (16.0-70.0); PLATELET COUNT 229 TH/MM3 (150-450); RED BLOOD COUNT 4.63 MIL/MM3 (4.00-5.30); RED CELL DISTRIBUTION WIDTH 13.4 % (11.6-17.2); WHITE BLOOD COUNT 9.1 TH/MM3 (4.0-11.0)
[2017-03-30 10:04] LABS: POTASSIUM 3.6 MEQ/L (3.5-5.1)
[2017-03-30 10:34] LABS: HEMOGLOBIN A1a 1.1 %; HEMOGLOBIN A1b 1.6 %; HEMOGLOBIN Ao 85.6 %; HEMOGLOBIN LA1C 2.1 %; HEMOGLOBIN P3 3.6 %
--- NOTE | 2017-03-30 10:42 | PD.CARD.PN ---
Subjective Subjective Remarks Doing well today No chest pain/SOB No nausea since last night Objective Medications Current Medications Medications (Trade) Dose Ordered Sig/Leanna Route Start Time Stop Time Status Last Admin (NS Flush) 2 ml UNSCH PRN IV FLUSH 03/28/17 22:45 (NS Flush) 2 ml BID IV FLUSH 03/29/17 09:00 03/29/17 21:33 (Zofran Inj) 4 mg Q6H PRN IVP 03/28/17 22:45 03/29/17 17:55 (Morphine Inj) 2 mg Q3H PRN IV PUSH 03/28/17 22:45 03/29/17 13:56 (Lashell-Colace) 1 tab BID PO 03/29/17 09:00 (Milk Of Magnesia Liq) 30 ml Q12H PRN PO 03/28/17 22:45 (Senokot) 17.2 mg Q12H PRN PO 03/28/17 22:45 (Dulcolax Supp) 10 mg DAILY PRN RECTAL 03/28/17 22:45 (Lactulose Liq) 30 ml DAILY PRN PO 03/28/17 22:45 (Nitroglycerin 2% Oint) 0.5 inch Q6HR PRN TOPICAL 03/28/17 22:45 (Lopressor) 25 mg Q12HR PO 03/29/17 09:00 03/29/17 21:33 (Ecotrin Ec) 81 mg DAILY PO 03/29/17 09:00 03/29/17 10:37 (Tylenol) 325 mg Q4H PRN PO 03/29/17 18:00 (Percocet 5-325 Mg) 1 tab Q4H PRN PO 03/29/17 18:00 (Percocet 10-325 Mg) 1 tab Q4H PRN PO 03/29/17 18:00 (Brilinta) 90 mg BID PO 03/30/17 09:00 (Heparin Inj) 5,000 units Q12H SQ 03/30/17 09:00 (Prinivil) 5 mg DAILY PO 03/30/17 09:00 (Lipitor) 80 mg HS PO 03/29/17 21:00 Vital Signs / I&O Vital Signs Date Time Temp Pulse Resp B/P (MAP) Pulse Ox O2 Delivery O2 Flow Rate FiO2 03/30/17 07:23 97 Room Air 9/17/17 07:23 98.3 86 16 183/93 (123) 97 03/30/17 06:00 88 03/30/17 05:00 80 03/30/17 04:24 92 16 158/94 (115) 97 03/30/17 04:24 97 Room Air 03/30/17 04:00 76 03/30/17 03:00 80 03/30/17 02:00 74 03/30/17 01:00 84 03/30/17 00:00 82 03/29/17 23:00 75 03/29/17 23:00 96 Room Air 03/29/17 23:00 76 18 160/94 (116) 96 03/29/17 22:00 84 03/29/17 21:00 82 03/29/17 20:30 98.2 87 16 167/96 (119) 96 03/29/17 20:30 96 Room Air 03/29/17 20:00 82 03/29/17 19:00 81 03/29/17 18:00 76 03/29/17 15:45 94 Room Air 03/29/17 15:45 98.3 81 16 166/94 (118) 94 03/29/17 13:00 80 03/29/17 12:00 74 03/29/17 11:17 97 Nasal Cannula 2.00 03/29/17 11:17 96.3 69 16 136/74 (94) 100 03/29/17 11:00 68 I/O 03/29/17 03/29/17 03/29/17 03/30/17 03/30/17 03/30/17 07:00 15:00 23:00 07:00 15:00 23:00 Intake Total 870 ml 960 ml 1090 ml Output Total 550 ml 5600 ml 1700 ml Balance 320 ml -4640 ml -610 ml Intake Oral 240 ml 960 ml 400 ml IV Total 630 ml 690 ml Output Urine Total 550 ml 5600 ml 1700 ml # Bowel Movements 0 0 0 Physical Exam GENERAL: NAD, AAOx3 SKIN: Warm and dry. HEAD: Atraumatic. Normocephalic. EYES: Pupils equal and round. No scleral icterus. No injection or drainage. ENT: No nasal bleeding or discharge. Mucous membranes pink and moist. NECK: Trachea midline. No JVD. CARDIOVASCULAR: Regular rate and rhythm. RESPIRATORY: No accessory muscle use. Clear to auscultation. Breath sounds equal bilaterally. GASTROINTESTINAL: Abdomen soft, non-tender, nondistended. Hepatic and splenic margins not palpable. MUSCULOSKELETAL: Extremities without clubbing, cyanosis, or edema. No obvious deformities. Right radial no hematoma, neurovascularly intact distally NEUROLOGICAL: Awake and alert. No obvious cranial nerve deficits. Motor grossly within normal limits. Five out of 5 muscle strength in the arms and legs. Normal speech. PSYCHIATRIC: Appropriate mood and affect; insight and judgment normal. Laboratory Laboratory Tests Test 03/29/17 13:50 03/30/17 07:20 White Blood Count 6.9 TH/MM3 9.1 TH/MM3 Red Blood Count 4.46 MIL/MM3 4.63 MIL/MM3 Hemoglobin 13.4 GM/DL 13.7 GM/DL Hematocrit 39.8 % 40.7 % Mean Corpuscular Volume 89.2 FL 87.9 FL Mean Corpuscular Hemoglobin 30.0 PG 29.5 PG Mean Corpuscular Hemoglobin Concent 33.7 % 33.6 % Red Cell Distribution Width 13.5 % 13.4 % Platelet Count 177 TH/MM3 229 TH/MM3 Mean Platelet Volume 7.0 FL 6.8 FL Neutrophils (%) (Auto) 73.8 % 77.3 % Lymphocytes (%) (Auto) 20.2 % 13.8 % Monocytes (%) (Auto) 5.3 % 8.6 % Eosinophils (%) (Auto) 0.3 % 0.1 % Basophils (%) (Auto) 0.4 % 0.2 % Neutrophils # (Auto) 5.1 TH/MM3 7.0 TH/MM3 Lymphocytes # (Auto) 1.4 TH/MM3 1.3 TH/MM3 Monocytes # (Auto) 0.4 TH/MM3 0.8 TH/MM3 Eosinophils # (Auto) 0.0 TH/MM3 0.0 TH/MM3 Basophils # (Auto) 0.0 TH/MM3 0.0 TH/MM3 CBC Comment DIFF FINAL DIFF FINAL Differential Comment Activated Partial Thromboplast Time 45.0 SEC Blood Urea Nitrogen 10 MG/DL 8 MG/DL Creatinine 0.65 MG/DL 0.62 MG/DL Random Glucose 112 MG/DL 87 MG/DL Total Protein 6.8 GM/DL Albumin 3.7 GM/DL Calcium Level 8.3 MG/DL 9.5 MG/DL Alkaline Phosphatase 80 U/L Aspartate Amino Transf (AST/SGOT) 19 U/L Alanine Aminotransferase (ALT/SGPT) 34 U/L Total Bilirubin 0.3 MG/DL Sodium Level 137 MEQ/L 137 MEQ/L Potassium Level 3.9 MEQ/L 3.6 MEQ/L Chloride Level 106 MEQ/L 105 MEQ/L Carbon Dioxide Level 24.3 MEQ/L 24.0 MEQ/L Anion Gap 7 MEQ/L 8 MEQ/L Estimat Glomerular Filtration Rate 92 ML/MIN 97 ML/MIN Troponin I 0.14 NG/ML Triglycerides Level 134 MG/DL Cholesterol Level 266 MG/DL LDL Cholesterol 181 MG/DL HDL Cholesterol 57.9 MG/DL Cholesterol/HDL Ratio 4.59 RATIO Thyroid Stimulating Hormone 3rd Gen 1.360 uIU/ML Assessment and Plan Problem List: (1) NSTEMI (non-ST elevated myocardial infarction) ICD Codes: I21.4 - Non-ST elevation (NSTEMI) myocardial infarction Status: Acute (2) Chest pain ICD Codes: R07.9 - Chest pain, unspecified Status: Acute (3) HTN (hypertension) ICD Codes: I10 - Essential (primary) hypertension (4) HLD (hyperlipidemia) ICD Codes: E78.5 - Hyperlipidemia, unspecified Assessment and Plan 1) Doing well post-cath, nausea most likely secondary to medications during catheterization 2) NSTEMI s/p Alpine DESx2 (prox 3.25x8, distal 3.25x12 overlapped) to the RCA Does have small vessel disease of the LAD/LCx, con't medical management 2) ASA/Brilinta/BB/Statin/LATONYA-I 3) HTN Con't LATONYA-I/BB Will add Norvasc 5mg, may need to be titrated up 4) Echo pending 5) Possible discharge tomorrow if echo complete and no problems overnight Follow up in the office in 2-4 weeks Problem Qualifiers (1) Chest pain: Qualified Codes: R07.9 - Chest pain, unspecified Michael Elkins DO Mar 30, 2017 10:42
[2017-03-30] MEDS: HEPARIN SODIUM - SQ 10,000 UNITS/ML VIAL SQ SCH ×2 (11:07→21:16)
[2017-03-30] MEDS: ASPIRIN EC 81 MG TABEC PO SCH (11:09)
[2017-03-30] MEDS: TICAGRELOR 90 MG TAB PO SCH ×2 (11:09→21:15)
[2017-03-30] MEDS: SODIUM CHLORIDE 0.9% FLUSH 10 ML FLUSH IV FLUSH SCH ×2 (11:10→21:14)
[2017-03-30] MEDS: DOCUSATE SODIUM 50 MG/SENNA 8.6 MG TAB PO SCH ×2 (11:10→21:15)
[2017-03-30] MEDS: amLODIPine BESYLATE 5 MG TAB PO SCH (11:17)
--- NOTE | 2017-03-30 15:39 | HHI.PR ---
Subjective Remarks Follow-up on chest pain. Patient herself says she feels good today, eating, no nausea vomiting, no setbacks. Objective Vital Signs Date Time Temp Pulse Resp B/P (MAP) Pulse Ox O2 Delivery O2 Flow Rate FiO2 03/30/17 13:00 78 03/30/17 12:00 80 03/30/17 11:25 98.3 80 16 147/97 (114) 97 03/30/17 11:25 97 Room Air 03/30/17 11:00 90 03/30/17 10:00 78 03/30/17 09:00 78 03/30/17 08:00 82 03/30/17 07:23 97 Room Air 03/30/17 07:23 98.3 86 16 183/93 (123) 97 03/30/17 07:00 75 03/30/17 06:00 88 03/30/17 05:00 80 03/30/17 04:24 92 16 158/94 (115) 97 03/30/17 04:24 97 Room Air 03/30/17 04:00 76 03/30/17 03:00 80 03/30/17 02:00 74 03/30/17 01:00 84 03/30/17 00:00 82 03/29/17 23:00 75 03/29/17 23:00 96 Room Air 03/29/17 23:00 76 18 160/94 (116) 96 03/29/17 22:00 84 03/29/17 21:00 82 03/29/17 20:30 98.2 87 16 167/96 (119) 96 03/29/17 20:30 96 Room Air 03/29/17 20:00 82 03/29/17 19:00 81 03/29/17 18:00 76 03/29/17 15:45 94 Room Air 03/29/17 15:45 98.3 81 16 166/94 (118) 94 I/O 03/29/17 03/29/17 03/29/17 03/30/17 03/30/17 03/30/17 07:00 15:00 23:00 07:00 15:00 23:00 Intake Total 870 ml 960 ml 1090 ml Output Total 550 ml 5600 ml 1700 ml Balance 320 ml -4640 ml -610 ml Intake Oral 240 ml 960 ml 400 ml IV Total 630 ml 690 ml Output Urine Total 550 ml 5600 ml 1700 ml # Bowel Movements 0 0 0 Result Diagram: 03/30/1771903/30/17719 Objective Remarks Awake alert, lying in bed Heart rate is regular rate rhythm, no murmurs, good skin color, no cyanosis no pallor Lungs are clear to auscultation bilaterally Dressing over right radial arterial puncture site A/P Assessment and Plan A/P: 1. NSTEMI: Underwent emergent catheterization yesterday, Status post stent placement 2, continue aspirin, beta anahi, statin, Brilinta. echo pending 2. Dehydration: normalized 3. DVT Prophylaxis: Heparin gtt Monitor closely on CIC w/ tele. Davide Dooley MD Mar 30, 2017 15:39
[2017-03-30] MEDS: ATORVASTATIN 80 MG TAB PO SCH (21:15)
[2017-03-31] VITALS (16 sets, daily range): BP systolic 127–144; BP diastolic 83–95; PULSE 62–94; RESP 18–20; TEMP 97.8–97.9; O2SAT 95–97
[2017-03-31 06:47] LABS: MEAN CORPUSCULAR HEMOGLOBIN 29.3 PG (27.0-34.0); MEAN CORPUSCULAR HGB CONC 33.3 % (32.0-36.0); PLATELET COUNT 289 TH/MM3 (150-450); RED BLOOD COUNT 4.88 MIL/MM3 (4.00-5.30); RED CELL DISTRIBUTION WIDTH 13.7 % (11.6-17.2); REVIEW FLAG FINAL; WHITE BLOOD COUNT 7.6 TH/MM3 (4.0-11.0)
[2017-03-31] MEDS ORDERED: AMLO5 PO (08:35)
[2017-03-31] MEDS ORDERED: METO25TA3 PO (08:35)
[2017-03-31] MEDS ORDERED: LISI-519 PO (08:35)
[2017-03-31] MEDS ORDERED: BRIL90TA PO (08:35)
[2017-03-31] MEDS ORDERED: ASPI-99 PO (08:35)
[2017-03-31] MEDS ORDERED: ATOR1TAB18 PO (08:35)
[2017-03-31] MEDS ORDERED: LISINOPRIL 5 MG TAB PO SCH (09:00)
[2017-03-31] MEDS: TICAGRELOR 90 MG TAB PO SCH (09:22)
[2017-03-31] MEDS: amLODIPine BESYLATE 5 MG TAB PO SCH (09:22)
[2017-03-31] MEDS: SODIUM CHLORIDE 0.9% FLUSH 10 ML FLUSH IV FLUSH SCH (09:22)
[2017-03-31] MEDS: ASPIRIN EC 81 MG TABEC PO SCH (09:23)
[2017-03-31] MEDS: METOPROLOL TARTRATE 25 MG TAB PO SCH (09:23)
[2017-03-31] MEDS: DOCUSATE SODIUM 50 MG/SENNA 8.6 MG TAB PO SCH (09:23)
[2017-03-31] MEDS: HEPARIN SODIUM - SQ 10,000 UNITS/ML VIAL SQ SCH (09:23)
--- NOTE | 2017-03-31 14:22 | ECHRPT ---
Indication: CAD CONCLUSIONS The left ventricular systolic function is low normal with an estimated ejection fraction in the rang e of 50- 55%. Mild concentric left ventricular hypertrophy. Doppler parameters are consistent with impaired left ventricular relaxtion (grade 1 diastolic dysfun ction). Trace mitral valve regurgitation. There is trace tricuspid valve regurgitation. BP: 144 / 96 HR: 82 Rhythm: MEASUREMENTS (Male / Female) Normal Values Technical Quality:Technically difficult study 2D ECHO LV Diastolic Diameter PLAX 3.8 cm 4.2 - 5.9 / 3.9 - 5.3 cm LV Systolic Diameter PLAX 3.1 cm IVS Diastolic Thickness 1.6 cm 0.6 - 1.0 / 0.6 - 0.9 cm LVPW Diastolic Thickness 1.1 cm 0.6 - 1.0 / 0.6 - 0.9 cm LV Relative Wall Thickness 0.7 RV Internal Dim ED PLAX 2.6 cm M-MODE Aortic Root Diameter MM 3.1 cm LA Systolic Diameter MM 3.5 cm LA Ao Ratio MM 1.1 AV Cusp Separation MM 1.6 cm DOPPLER Mitral E Point Velocity 67.1 cm/s Mitral A Point Velocity 95.8 cm/s Mitral E to A Ratio 0.7 LV E' Lateral Velocity 7.1 cm/s Mitral E to LV E' Lateral Ratio 9.4 LV E' Septal Velocity 9.5 cm/s Mitral E to LV E' Septal Ratio 7.1 FINDINGS LEFT VENTRICLE Normal left ventricular size. Mild concentric left ventricular hypertrophy. The left ventricular systolic function is low normal with an estimated ejection fraction in the rang e of 50- 55%. No regional wall motion abnormalities are present. Doppler parameters are consistent with impaired left ventricular relaxtion (grade 1 diastolic dysfun ction). RIGHT VENTRICLE Normal right ventricular size and systolic function. LEFT ATRIUM The left atrial size is upper limits of normal. RIGHT ATRIUM The right atrial size is normal. ATRIAL SEPTUM Normal atrial septal thickness without atrial level shunting by limited color doppler interrogation. AORTA The aortic root and proximal ascending aorta are normal in size on limited imaging. MITRAL VALVE Structurally normal mitral valve. Trace mitral valve regurgitation. No mitral valve stenosis. AORTIC VALVE Trileaflet aortic valve. No aortic valve stenosis or regurgitation. TRICUSPID VALVE Structurally normal tricuspid valve. There is trace tricuspid valve regurgitation. No tricuspid valve stenosis. PULMONARY VALVE The pulmonary valve is not well visualized. VESSELS The inferior vena cava is normal in size. PERICARDIUM No pericardial effusion. Vincent G. Elkins DO (Electronically Signed) Final Date:31 March 2017 14:21
--- NOTE | 2017-03-31 15:08 | PD.CARD.PN ---
Subjective Subjective Remarks Patient seen this morning No complaints, no chest pain/SOB/nausea Objective Medications Current Medications Morphine Sulfate (Morphine Inj) 4 mg ONCE ONCE IV PUSH ; Start 03/28/17 at 21: 00; Stop 03/28/17 at 21:01; Status DC Heparin Sodium (Porcine) (Heparin Inj) 4,000 units ONCE ONCE IV Last administered on 03/28/17 22:35; Start 03/28/17 at 22:30; Stop 03/28/17 at 22:31 ; Status DC Heparin Sodium (Porcine) (Heparin Inj) 5,000 units UNSCH PRN IV APTT LESS THAN 25; Start 03/29/17 at 04:30; Stop 03/29/17 at 18:08; Status DC Heparin Sodium (Porcine) (Heparin Inj) 2,500 units UNSCH PRN IV APTT 25 TO 39; Start 03/29/17 at 04:30; Stop 03/29/17 at 18:08; Status DC Heparin Sodium/ Dextrose 250 ml @ 10 mls/hr TITRATE PRN IV Coagulation management Last administered on 03/28/17 22:36; Start 03/28/17 at 22:30; Stop 03/29/17 at 18:09; Status DC Sodium Chloride 1,000 ml @ 100 mls/hr Q10H IV Last administered on 03/29/17 10:05; Start 03/28/17 at 22:37; Stop 03/29/17 at 18:03; Status DC Sodium Chloride (NS Flush) 2 ml UNSCH PRN IV FLUSH FLUSH AFTER USING IV ACCESS ; Start 03/28/17 at 22:45; Stop 03/31/17 at 14:59; Status DC Sodium Chloride (NS Flush) 2 ml BID IV FLUSH Last administered on 03/31/17 09: 22; Start 03/29/17 at 09:00; Stop 03/31/17 at 14:59; Status DC Ondansetron HCl (Zofran Inj) 4 mg Q6H PRN IVP NAUSEA OR VOMITING Last administered on 03/29/17 17:55; Start 03/28/17 at 22:45; Stop 03/31/17 at 14:59 ; Status DC Acetaminophen (Tylenol) 650 mg Q6H PRN PO FEVER/PAIN SCALE 1 TO 2; Start at 22:45; Stop 03/29/17 at 18:10; Status DC Acetaminophen/ Hydrocodone Bitart ([place] 5-325 Mg) 1 tab Q4H PRN PO PAIN SCALE 3 TO 5; Start 03/28/17 at 22:45; Stop 03/29/17 at 18:10; Status DC Morphine Sulfate (Morphine Inj) 2 mg Q3H PRN IV PUSH Pain 6-10 Last administered on 03/29/17 13:56; Start 03/28/17 at 22:45; Stop 03/31/17 at 14:59 ; Status DC Senna/Docusate Sodium (Lashell-Colace) 1 tab BID PO Last administered on 09:23; Start 03/29/17 at 09:00; Stop 03/31/17 at 14:59; Status DC Magnesium Hydroxide (Milk Of Magnesia Liq) 30 ml Q12H PRN PO MILD - MODERATE CONSTIPATION; Start 03/28/17 at 22:45; Stop 03/31/17 at 14:59; Status DC Sennosides (Senokot) 17.2 mg Q12H PRN PO MODERATE - SEVERE CONSTIPATION; Start 03/28/17 at 22:45; Stop 03/31/17 at 14:59; Status DC Bisacodyl (Dulcolax Supp) 10 mg DAILY PRN RECTAL SEVERE CONSITIPATION; Start at 22:45; Stop 03/31/17 at 14:59; Status DC Lactulose (Lactulose Liq) 30 ml DAILY PRN PO SEVERE CONSITIPATION; Start at 22:45; Stop 03/31/17 at 14:59; Status DC Nitroglycerin (Nitroglycerin 2% Oint) 0.5 inch Q6HR PRN TOPICAL CHEST PAIN; Start 03/28/17 at 22:45; Stop 03/31/17 at 14:59; Status DC Metoprolol Tartrate (Lopressor) 25 mg Q12HR PO Last administered on 03/31/17 09:23; Start 03/29/17 at 09:00; Stop 03/31/17 at 14:59; Status DC Pravastatin Sodium (Pravachol) 40 mg DAILY PO Last administered on 03/29/17 10 :36; Start 03/29/17 at 09:00; Stop 03/29/17 at 18:01; Status DC Aspirin (Ecotrin Ec) 81 mg DAILY PO Last administered on 03/31/17 09:23; Start 03/29/17 at 09:00; Stop 03/31/17 at 14:59; Status DC Nitroglycerin (Nitrostat Sl) 0.4 mg ONCE ONCE SL Last administered on 10:11; Start 03/29/17 at 09:00; Stop 03/29/17 at 09:01; Status DC Iohexol (Omnipaque 350 Inj) 75 ml STK-MED ONCE IVCONTRAST Last administered on 03/29/17 15:07; Start 03/29/17 at 15:07; Stop 03/29/17 at 15:08; Status DC Heparin Sodium/ Sodium Chloride 1,000 ml @ As Directed STK-MED ONCE .ROUTE Last administered on 03/29/17 16:18; Start 03/29/17 at 16:18; Stop 03/29/17 at 16:19; Status DC Sodium Chloride 500 ml @ As Directed STK-MED ONCE .ROUTE ; Start 03/29/17 at 16 :19; Stop 03/29/17 at 16:20; Status DC Verapamil HCl (Isoptin Inj) 5 mg STK-MED ONCE .ROUTE Last administered on 16:24; Start 03/29/17 at 16:24; Stop 03/29/17 at 16:25; Status DC Heparin Sodium (Porcine) (Heparin Inj) 10,000 units STK-MED ONCE .ROUTE Last administered on 03/29/17 16:24; Start 03/29/17 at 16:24; Stop 03/29/17 at 16:25 ; Status DC Midazolam HCl (Versed Inj) 2 mg STK-MED ONCE .ROUTE Last administered on 16:24; Start 03/29/17 at 16:24; Stop 03/29/17 at 16:25; Status DC Fentanyl Citrate (fentaNYL INJ) 100 mcg STK-MED ONCE .ROUTE Last administered on 03/29/17 16:24; Start 03/29/17 at 16:24; Stop 03/29/17 at 16:25; Status DC Ticagrelor (Brilinta) 180 mg STK-MED ONCE PO Last administered on 03/29/17 17: 26; Start 03/29/17 at 17:26; Stop 03/29/17 at 17:27; Status DC Hydralazine HCl (Apresoline Inj) 20 mg STK-MED ONCE .ROUTE ; Start 03/29/17 at 17:39; Stop 03/29/17 at 17:40; Status DC Sodium Chloride 1,000 ml @ 60 mls/hr [id number] IV Last administered on 18:44; Start 03/29/17 at 17:57; Stop 03/30/17 at 05:56; Status DC Acetaminophen (Tylenol) 325 mg Q4H PRN PO PAIN SCALE 1 TO 2 Last administered on 03/30/17 11:23; Start 03/29/17 at 18:00; Stop 03/31/17 at 14:59; Status DC Oxycodone/ Acetaminophen (Percocet 5-325 Mg) 1 tab Q4H PRN PO PAIN SCALE 3 TO 5; Start 03/29/17 at 18:00; Stop 03/31/17 at 14:59; Status DC Oxycodone/ Acetaminophen (Percocet 10-325 Mg) 1 tab Q4H PRN PO PAIN SCALE 6 TO 10; Start 03/29/17 at 18:00; Stop 03/31/17 at 14:59; Status DC Ticagrelor (Brilinta) 90 mg BID PO Last administered on 03/31/17 09:22; Start 03/30/17 at 09:00; Stop 03/31/17 at 14:59; Status DC Miscellaneous Information 1 ONCE ONCE XX ; Start 03/29/17 at 18:00; Stop at 18:08; Status DC Heparin Sodium (Porcine) (Heparin Inj) 5,000 units Q12H SQ Last administered on 03/31/17 09:23; Start 03/30/17 at 09:00; Stop 03/31/17 at 14:59; Status DC Lisinopril (Prinivil) 5 mg DAILY PO ; Start 03/30/17 at 09:00; Stop 03/30/17 at 10:45; Status DC Atorvastatin Calcium (Lipitor) 80 mg HS PO Last administered on 03/30/17 21:15 ; Start 03/29/17 at 21:00; Stop 03/31/17 at 14:59; Status DC Ticagrelor (Brilinta) 180 mg ONCE ONCE PO Last administered on 03/29/17 21:33 ; Start 03/29/17 at 18:15; Stop 03/29/17 at 18:17; Status DC Metoclopramide HCl (Reglan Inj) 10 mg NOW ONCE IV Last administered on 19:42; Start 03/29/17 at 19:45; Stop 03/29/17 at 19:46; Status DC Midazolam HCl (Versed Inj) 0.5 mg ONCE ONCE IV ; Start 03/29/17 at 16:26; Stop 03/29/17 at 21:47; Status DC Fentanyl Citrate (fentaNYL INJ) 25 mcg ONCE ONCE IV ; Start 03/29/17 at 16:27; Stop 03/29/17 at 21:47; Status DC Heparin Sodium (Porcine) (Heparin Inj) 3,000 units ONCE ONCE IV ; Start at 16:56; Stop 03/29/17 at 21:49; Status DC Hydralazine HCl (Apresoline Inj) 10 mg ONCE ONCE IV ; Start 03/29/17 at 17:45; Stop 03/29/17 at 21:49; Status DC Lisinopril (Prinivil) 10 mg DAILY PO Last administered on 03/31/17 09:22; Start 03/31/17 at 09:00; Stop 03/31/17 at 14:59; Status DC Amlodipine Besylate (Norvasc) 5 mg DAILY PO Last administered on 03/31/17 09: 22; Start 03/30/17 at 11:00; Stop 03/31/17 at 14:59; Status DC Vital Signs / I&O Vital Signs Date Time Temp Pulse Resp B/P (MAP) Pulse Ox O2 Delivery O2 Flow Rate FiO2 03/31/17 14:00 76 03/31/17 13:00 81 03/31/17 12:00 72 03/31/17 11:00 97.8 70 20 130/83 (99) 97 03/31/17 11:00 97 Room Air 03/31/17 11:00 71 03/31/17 10:00 82 03/31/17 09:00 94 03/31/17 08:00 88 03/31/17 07:00 95 Room Air 03/31/17 07:00 97.9 86 20 127/86 (100) 95 03/31/17 07:00 76 03/31/17 06:00 84 03/31/17 05:16 82 18 144/95 (111) 97 03/31/17 05:16 97 Room Air 03/31/17 05:00 82 03/31/17 04:00 70 03/31/17 03:00 62 03/31/17 02:00 80 03/31/17 01:00 70 03/31/17 00:02 97 Room Air 03/31/17 00:00 66 03/30/17 23:30 98.0 84 18 144/88 (106) 97 03/30/17 23:00 70 03/30/17 22:00 76 03/30/17 21:00 94 03/30/17 20:00 98 03/30/17 19:00 97.8 84 16 168/98 (121) 96 03/30/17 19:00 84 03/30/17 19:00 96 Room Air 03/30/17 18:16 80 03/30/17 17:00 86 03/30/17 16:00 88 03/30/17 15:56 97.5 88 16 124/82 (96) 97 03/30/17 15:56 97 Room Air I/O 03/30/17 03/30/17 03/30/17 03/31/17 03/31/17 03/31/17 07:00 15:00 23:00 07:00 15:00 23:00 Intake Total 1090 ml 1680 ml 360 ml Output Total 1700 ml 2800 ml 900 ml Balance -610 ml -1120 ml -540 ml Intake Oral 400 ml 1680 ml 360 ml IV Total 690 ml Output Urine Total 1700 ml 2800 ml 900 ml # Bowel Movements 0 0 0 Physical Exam GENERAL: NAD, AAOx3 SKIN: Warm and dry. HEAD: Atraumatic. Normocephalic. EYES: Pupils equal and round. No scleral icterus. No injection or drainage. ENT: No nasal bleeding or discharge. Mucous membranes pink and moist. NECK: Trachea midline. No JVD. CARDIOVASCULAR: Regular rate and rhythm. RESPIRATORY: No accessory muscle use. Clear to auscultation. Breath sounds equal bilaterally. GASTROINTESTINAL: Abdomen soft, non-tender, nondistended. Hepatic and splenic margins not palpable. MUSCULOSKELETAL: Extremities without clubbing, cyanosis, or edema. No obvious deformities. Right radial no hematoma, neurovascularly intact distally NEUROLOGICAL: Awake and alert. No obvious cranial nerve deficits. Motor grossly within normal limits. Five out of 5 muscle strength in the arms and legs. Normal speech. PSYCHIATRIC: Appropriate mood and affect; insight and judgment normal. Laboratory Laboratory Tests Test 03/31/17 06:30 White Blood Count 7.6 TH/MM3 Red Blood Count 4.88 MIL/MM3 Hemoglobin 14.3 GM/DL Hematocrit 43.0 % Mean Corpuscular Volume 88.0 FL Mean Corpuscular Hemoglobin 29.3 PG Mean Corpuscular Hemoglobin Concent 33.3 % Red Cell Distribution Width 13.7 % Platelet Count 289 TH/MM3 Mean Platelet Volume 6.8 FL Assessment and Plan Problem List: (1) NSTEMI (non-ST elevated myocardial infarction) ICD Codes: I21.4 - Non-ST elevation (NSTEMI) myocardial infarction Status: Acute (2) Chest pain ICD Codes: R07.9 - Chest pain, unspecified Status: Acute (3) HTN (hypertension) ICD Codes: I10 - Essential (primary) hypertension (4) HLD (hyperlipidemia) ICD Codes: E78.5 - Hyperlipidemia, unspecified Assessment and Plan 1) Doing well post-cath, nausea most likely secondary to medications during catheterization 2) NSTEMI s/p Alpine DESx2 (prox 3.25x8, distal 3.25x12 overlapped) to the RCA Does have small vessel disease of the LAD/LCx, con't medical management 2) ASA/Brilinta/BB/Statin/LATONYA-I 3) HTN Con't LATONYA-I/BB/Norvasc Blood pressure better controlled 4) EF 50-55%, mild LVH, DD1 5) Cardiovascularly stable for discharge, will follow up with me in 2-4 weeks Problem Qualifiers (1) Chest pain: Qualified Codes: R07.9 - Chest pain, unspecified Michael Elkins DO Mar 31, 2017 15:08
--- NOTE | 2017-03-31 16:51 | HHI.DS ---
Discharge Summary Admission Date Mar 28, 2017 at 22:33 Discharge Date: Mar 31, 2017 Admitting Diagnosis NSTEMI (1) NSTEMI (non-ST elevated myocardial infarction) ICD Code: I21.4 - Non-ST elevation (NSTEMI) myocardial infarction Status: Acute (2) HTN (hypertension) ICD Code: I10 - Essential (primary) hypertension (3) Dehydration ICD Code: E86.0 - Dehydration Procedures Heart catheter Brief History - From Admission This is a 62-year-old female with no reported PMH who was brought to the ER by EMS with complaints of chest pain x2-3 days. Reports pain worse w/ exertion, occasional radiation to neck. No h/o similar symptoms in the past. Denies SOB or cough. On arrival, BP 203/102, HR 93, O2 sat 97% on 2L NC, Afebrile. CBC essentially unremarkable. Chemistry unremarkable except for GFR 59. Troponin 0.18. INR 0.9. EKG with LBBB, no previous EKG for comparison. Dr. Elkins consulted by ER physician, recommended anticoagulation w/ Heparin and possible cath in am. Pt currently chest pain free. CBC/BMP: 03/31/17 0630 03/30/17 0720 Significant Findings Laboratory Tests Test 03/28/17 20:51 03/29/17 03:37 03/29/17 03:51 03/29/17 13:50 Mean Platelet Volume 6.8 FL (7.0-11.0) Monocytes (%) (Auto) 8.9 % (0.0-8.0) Blood Urea Nitrogen 19 MG/DL (7-18) Random Glucose 119 MG/DL (74-106) 112 MG/DL (74-106) Estimat Glomerular Filtration Rate 59 ML/MIN (>89) Troponin I 0.18 NG/ML (0.02-0.05) 0.32 NG/ML (0.02-0.05) 0.14 NG/ML (0.02-0.05) Activated Partial Thromboplast Time 76.2 SEC (24.3-30.1) 45.0 SEC (24.3-30.1) Neutrophils (%) (Auto) 73.8 % (16.0-70.0) Calcium Level 8.3 MG/DL (8.5-10.1) Cholesterol Level 266 MG/DL (120-200) LDL Cholesterol 181 MG/DL (0-99) Test 03/30/17 07:20 03/31/17 06:30 Mean Platelet Volume 6.8 FL (7.0-11.0) 6.8 FL (7.0-11.0) Neutrophils (%) (Auto) 77.3 % (16.0-70.0) Monocytes (%) (Auto) 8.6 % (0.0-8.0) Hospital Course 62 years old female admitted for dehydration, chest pain, NSTEMI patient Underwent emergent catheterization , Status post stent placement 2, continue aspirin, beta anahi, statin, Brilinta. echo showed Left ventricular systolic function 50-55% EF, mild concentric left ventricle hypertrophy, trace MR and TR, D/W Dr. Elkins, he agree with the discharge and follow up as an outpatient Pt Condition on Discharge: Fair Discharge Disposition: Discharge Home Discharge Time: <= 30 minutes Discharge Instructions DIET: Follow Instructions for: Heart Healthy Diet Activities you can perform: Weight Bearing as Ferdinand Follow up Referrals: Cardiology - 2 Weeks with Michael Elkins DO New Medications: Amlodipine (Norvasc) 5 Mg Tab 5 MG PO DAILY for htn, #[address] (Adult Aspirin EC Low Strength) 81 Mg Tabec 81 MG PO DAILY for cad, #30 TAB Atorvastatin (Atorvastatin) 80 Mg Tab 80 MG PO HS for cad, #30 TAB Lisinopril (Lisinopril) 5 Mg Tab 10 MG PO DAILY for htn, #30 TAB Metoprolol Tartrate (Metoprolol Tartrate) 25 Mg Tab 25 MG PO Q12HR for cad, #60 TAB Ticagrelor (Brilinta) 90 Mg Tab 90 MG PO BID for cad, #30 TAB Adan Winslow MD Mar 31, 2017 16:51
== END 2017-03-31 14:53 | disposition home or self-care (01) | DRG 247 ==
LOC: NEPC 20:40 → NEDA 22:33 → HCIS 03-29 00:33
PROVIDERS: ADMIT Hospitalist; ATTEND Hospitalist
PROC: 027035Z Dilation of Coronary Artery, One Artery with Two Drug-eluting Intraluminal Devices, Percutaneous Approach (ICD-10-PCS; principal; 2017-03-28)
PROC: 4A023N7 Measurement of Cardiac Sampling and Pressure, Left Heart, Percutaneous Approach (ICD-10-PCS; 2017-03-28)
PROC: B2111ZZ Fluoroscopy of Multiple Coronary Arteries using Low Osmolar Contrast (ICD-10-PCS; 2017-03-28)
DX: I21.4 Non-ST elevation (NSTEMI) myocardial infarction (principal); I10 Essential (primary) hypertension; I44.7 Left bundle-branch block, unspecified; E86.0 Dehydration; E78.5 Hyperlipidemia, unspecified; I16.0 Hypertensive urgency; I25.10 Atherosclerotic heart disease of native coronary artery without angina pectoris
CPT/HCPCS: 71010; 71275; 80048; 80053; 80061; 82550; 82552; 83036; 83690; 84443; 84484; 85002; 85025; 85027; 85610; 85730; 92928; 93005; 93306; 93454; C1725; C1769; C1874; C1887; C1893; J0360; J1644; J2250; J2270; J2405; J2765; J3010; J7030; J7040; Q9967

== ENCOUNTER 2018-05-09 13:23 | Observation (INO) ==
--- NOTE | 2018-05-09 13:49 | ED ---
HPI General Chief complaint: Dizziness Stated complaint: Arm Pain Complaint Time Seen by Provider: 05/09/18 13:33 Source: patient Mode of arrival: ambulatory Limitations: no limitations History of Present Illness HPI narrative: 63yo F with PMH of CAD s/p cardiac stentx2 03/28/17 presents to the ED with c/o left sided chest pressure that started about 10:30am today. Feels like it is a little harder to breathe. Started with episode of bilateral arm tingling, numbness, weakness at 10am that lasted 30 minutes. Then she started having generalized weakness. Said these episodes with bilateral arm numbness, tingling and weakness has been occurring every other month since her cardiac cath last year. However, the episodes always resolve and is never more than 30 seconds. Denies any fever, n/v, abdominal pain, current focal weakness or numbness. Related Data Home Medications Medication Instructions Recorded Confirmed amlodipine 5 mg PO DAILY 05/09/18 05/09/18 clopidogrel 75 mg PO DAILY 05/09/18 05/09/18 lisinopril 5 mg PO DAILY 05/09/18 05/09/18 Allergies Allergy/AdvReac Type Severity Reaction Status Date / Time No Known Allergies Allergy Verified 05/09/18 13:29 Review of Systems ROS: all other systems reviewed are negative [facility] Medical History Medical History HTN (hypertension) (Acute) High cholesterol (Acute) Surgical History Surgical History History of removal of ovarian cyst (Acute) Hx of heart artery stent (Acute) Social History Social History Substance History: No History of Abuse Smoking Status: Never smoker How Often Do You Have a Drink Containing Alcohol: Never Recent Travel in [facility] within the Last 8 Weeks: No Recent Out of Country Travel within the Last 8 Weeks: No Immunization History Tetanus Immunization: Unsure Exam Narrative Exam Narrative: GENERAL: [-] SKIN: Focused skin assessment warm/dry. HEAD: Atraumatic. Normocephalic. EYES: Pupils equal and round. No scleral icterus. No injection or drainage. ENT: No nasal bleeding or discharge. Mucous membranes pink and moist. NECK: Trachea midline. No JVD. CARDIOVASCULAR: Regular rate and rhythm. No murmur appreciated. RESPIRATORY: No accessory muscle use. Clear to auscultation. Breath sounds equal bilaterally. GASTROINTESTINAL: Abdomen soft, non-tender, nondistended. MUSCULOSKELETAL: No obvious deformities. No clubbing. No cyanosis. No edema. NEUROLOGICAL: Awake and alert. No obvious cranial nerve deficits. Motor grossly within normal limits in all extremities. Sensation intact. Normal speech. PSYCHIATRIC: Appropriate mood and affect; insight and judgment normal. Course Initial Documented Vital Signs Temperature 97.4 F L 05/09/18 13:26 Pulse Rate 100 H 05/09/18 13:26 Respiratory Rate 20 05/09/18 13:26 Blood Pressure 206/97 H 05/09/18 13:26 Pulse Oximetry 99 05/09/18 13:26 Last Documented Vital Signs Temperature 98.1 F 05/09/18 17:17 Pulse Rate 75 05/09/18 17:17 Respiratory Rate 12 05/09/18 17:17 Blood Pressure 154/83 H 05/09/18 17:17 Pulse Oximetry 96 05/09/18 17:17 Medical Decision Making MDM Narrative Medical decision making narrative: 63yo F here with chest pain that is atypical. Pt does have significant cardiac history so will do labs including cardiac enzymes, CXR, EKG. BP was very elevated at triage but repeat BP improved in the ED. Pt said she did not like nitroglycerin so does not want nitroglycerin. Labs reviewed, no leukocytosis. H/H normal. CMP unremarkable. Troponin negative. CXR negative. Pt given morphine and aspirin. Will admit to chest pain center to r/o ACS. Medical Screen Exam Complete: Yes Emergency Medical Condition: Yes Differential Diagnosis Differential Diagnosis: Anxiety vs. ACS Lab Data Result diagrams: 05/09/18 13:50 05/09/18 13:50 Lab Results 05/09/18 05/09/18 05/09/18 Range/Units 13:50 13:50 13:50 WBC 5.9 (4.0-11.0) th/mm3 RBC 4.76 (4.00-5.30) mil/mm3 Hgb 14.3 (11.6-15.3) gm/dL Hct 43.2 (35.0-46.0) % MCV 90.8 (80.0-100.0) fL MCH 30.1 (27.0-34.0) pg MCHC 33.2 (32.0-36.0) % RDW 13.2 (11.6-17.2) % Plt Count 216 (150-450) th/mm3 MPV 6.6 L (7.0-11.0) fL Neut % (Auto) 57.2 (16.0-70.0) % Lymph % (Auto) 31.8 (9.0-44.0) % [place] % (Auto) 7.2 (0.0-8.0) % Eos % (Auto) 3.3 (0.0-4.0) % Baso % (Auto) 0.5 (0.0-2.0) % Neut # (Auto) 3.4 (1.8-7.7) th/mm3 Lymph # (Auto) 1.9 (1.0-4.8) th/mm3 [place] # (Auto) 0.4 (0.0-0.9) th/mm3 Eos # (Auto) 0.2 (0.0-0.4) th/mm3 Baso # (Auto) 0.0 (0.0-0.2) th/mm3 WBC Differential . Differential Comment Auto diff final PT 9.8 (9.8-11.6) sec INR 1.0 Ratio APTT 28.7 (24.3-30.1) sec Sodium 142 (136-145) meq/L Potassium 4.0 (3.5-5.1) meq/L Chloride 109 H (98-107) meq/L Carbon Dioxide 24.4 (21.0-32.0) meq/L Anion Gap 9 (5-15) meq/L BUN 16 (7-18) mg/dL Creatinine 0.79 (0.50-1.00) mg/dL Estimated GFR 73 L (>89) mL/min Random Glucose 101 (74-106) mg/dL Calcium 8.9 (8.5-10.1) mg/dL Total Bilirubin 0.3 (0.2-1.0) mg/dL AST 19 (15-37) U/L ALT 27 (10-53) U/L Alkaline Phosphatase 69 (45-117) U/L Troponin I Less than 0.02 L (0.02-0.05) ng/mL Total Protein 7.9 (6.4-8.2) g/dL Albumin 4.2 (3.4-5.0) g/dL Imaging Data Radiologist's impression: Chest X-Ray 05/09/18 13:45 CONCLUSION: Negative examination. ECG Data EKG Prior to Arrival: No Attestation: I personally reviewed and interpreted this ECG as follows: Interpretation: NSR 99bpm. LAD. VA interval 170ms. LBBB unchanged from EKG 2017. No concordance. Discharge Plan Discharge Disposition Patient Disposition: 30 Still Patient Discharge Details Diagnosis: Chest pain Physicians Team ED Provider: Virgen Gutierrez Primary Care Provider: Erica Azar Attending Provider: Micah Nicole ED Status: Left Department Discharge Information Discharge Date/Time: 05/09/18 17:04
--- NOTE | 2018-05-09 14:02 | XR ---
EXAM DATE: 05/09/2018 1:59 PM EDT AGE/SEX: 63 years / Female INDICATIONS: Chest pain. CLINICAL DATA: This is the patient's initial encounter. Patient reports that signs and symptoms have been present for 4 - 6 days and indicates a pain score of 2/10. MEDICAL/SURGICAL HISTORY: None. . Cardiac stents. COMPARISON: [facility] [place], CHEST SINGLE AP, 03/28/2017. . FINDINGS: A single AP view of the chest demonstrates the lungs to be symmetrically aerated without evidence of mass, infiltrate or effusion. The cardiomediastinal contours are unremarkable. Osseous structures a re intact. CONCLUSION: Negative examination. Electronically signed by: Bernabe Gonzales MD 05/09/2018 2:01 PM EDT
[2018-05-09] MEDS ORDERED: Morphine Sulfate Inj 2 MG/ML Vial IV.PUSH ONE (14:05)
[2018-05-09 14:17] LABS: Baso % (Auto) 0.5 % (0.0-2.0); Eos # (Auto) 0.2 th/mm3 (0.0-0.4); Eos % (Auto) 3.3 % (0.0-4.0); Hematocrit 43.2 % (35.0-46.0); Hemoglobin 14.3 gm/dL (11.6-15.3); Lymph # (Auto) 1.9 th/mm3 (1.0-4.8); Lymph % (Auto) 31.8 % (9.0-44.0); Mean Corpuscular HGB Conc 33.2 % (32.0-36.0); Mean Corpuscular Hemoglobin 30.1 pg (27.0-34.0); Mean Corpuscular Volume 90.8 fL (80.0-100.0); Mean Platelet Volume 6.6 fL (7.0-11.0); Mono # (Auto) 0.4 th/mm3 (0.0-0.9); Mono % (Auto) 7.2 % (0.0-8.0); Neut # (Auto) 3.4 th/mm3 (1.8-7.7); Neut % (Auto) 57.2 % (16.0-70.0); Platelet Count 216 th/mm3 (150-450); Red Blood Count 4.76 mil/mm3 (4.00-5.30); Red Cell Distribution Width 13.2 % (11.6-17.2); White Blood Count 5.9 th/mm3 (4.0-11.0)
[2018-05-09 14:28] LABS: Activated Partial Thrombo Time 28.7 sec (24.3-30.1); Prothrombin Time 9.8 sec (9.8-11.6)
[2018-05-09 14:36] LABS: Alanine Aminotransferase 27 U/L (10-53); Albumin 4.2 g/dL (3.4-5.0); Anion Gap 9 meq/L (5-15); Aspartate Aminotransferase 19 U/L (15-37); Blood Urea Nitrogen 16 mg/dL (7-18); Calcium 8.9 mg/dL (8.5-10.1); Carbon Dioxide 24.4 meq/L (21.0-32.0); Chloride 109 meq/L (98-107); Glomerular Filtration Rate 73 mL/min (>89); Glucose,Random 101 mg/dL (74-106); Sodium 142 meq/L (136-145)
[2018-05-09 14:39] LABS: Alkaline Phosphatase 69 U/L (45-117); Total Protein 7.9 g/dL (6.4-8.2)
[2018-05-09] MEDS ORDERED: ALPRAZolam 0.25 MG Tablet PO PRN (17:02)
[2018-05-09] MEDS ORDERED: Acetaminophen 500 MG Tablet PO PRN (17:04)
--- NOTE | 2018-05-09 17:13 | P.HPCA ---
History of Present Illness Primary Care Physician: Erica Azar Chief Complaint: Chest pain History of Present Illness: This is a 63-year-old female with history of CAD as she was a non-STEMI March 2017 having 2 stents of the RCA at that time by Dr. Elkins. She presents to ED with family with complaint of 6 months of intermittent discomforts as well as tingling and numbness sensations down both arms. Nothing really seems to bring on the discomforts. The discomfort in her chest is described as a heaviness in the center as well as an achy discomfort in her back between her shoulder blades. She states that discomfort feels similar to when needing stents last year. She did not have the tingling and numbness down her arms or the heaviness in her chest during that presentation. Has not been compliant with statin therapy. States she did some research on that medication and it scared her to take it. She has not discussed this with her physicians. She has continued to take Plavix and also taking lisinopril and amlodipine. Currently denies discomfort in her chest. She has seen Dr. Elkins since her heart catheterization, believes it was about 6 months ago. Cannot recall having stress testing since. She also has history of left bundle branch block. History of CAD, was a non-STEMI March 2017 with 2 stents to the RCA. Hypertension, hyperlipidemia. Denies diabetes. Denies family history of CAD. Essentially non-smoker. - Diagnosis (1) Chest pain (2) CAD (coronary artery disease) (3) History of heart artery stent (4) Hypertension (5) Hyperlipidemia Review of Systems General: Patient denies fevers, chills, and recent travel. HEENT: Patient denies headache, sore throat, difficulty swallowing. Cardiovascular: Has the chest discomfort as mentioned above. Denies sensation of heart beating rapidly or irregularly. No syncope. Denies diaphoresis. Respiratory: Denies shortness of breath or inspirational chest discomfort. Denies coughing wheezing or hemoptysis. GI: Patient denies nausea, vomiting, diarrhea, abdominal pain, bloody stools. Musculoskeletal: Patient denies joint pain or edema. Denies calf pain or edema. Complains of back pain between her shoulder blades which is similar to the discomfort that she had prior to stenting. Neurovascular: Patient denies numbness, tingling, weakness in extremities. Denies headache. Endocrine: Denies polyuria and polydipsia. Hematologic: Denies easy bruising. Skin: Denies rash or itching. PMFSH - History History Provided By: Patient - Medical History Medical History: Medical History (Last Updated 05/09/18 @ 13:35 by Jerad Strong RN) HTN (hypertension) High cholesterol - Surgical History Surgical History: Surgical History (Last Updated 05/09/18 @ 13:35 by Jerad Strong RN) History of removal of ovarian cyst Hx of heart artery stent - Tobacco History Smoking Status: Never smoker - Alcohol History How Often Do You Have a Drink Containing Alcohol: Never - Substance Use History Substance History: No History of Abuse - Travel History Recent Travel in the [place] Within the Last 8 Weeks: No Recent Travel Out of the Country Within the Last 8 Weeks: No - Immunization History Tetanus Immunization: Unsure Medications and Allergies Active Medications: Active Medications Acetaminophen (Tylenol) 500 mg PO Q6H PRN PRN Reason: pain scale 1-5 Hydrocodone Bitart/Acetaminophen ([place] 7.5/325) 1 tab PO Q6H PRN PRN Reason: pain scale 6-10 Albuterol (Duoneb Neb (Prn)) 1 ampul NEB Q4HR NEB PRN PRN Reason: SHORTNESS OF BREATH/WHEEZING Alprazolam (Xanax) 0.25 mg PO Q8H PRN PRN Reason: ANXIETY Amlodipine Besylate (Norvasc) 5 mg PO DAILY [facility] Aspirin (Aspirin) 325 mg PO DAILY [facility] Clonidine HCl (Catapres) 0.1 mg PO Q6H PRN PRN Reason: SBP >165 OR DBP > 110 Clopidogrel Bisulfate (Plavix) 75 mg PO DAILY [facility] Lisinopril (Prinivil) 5 mg PO DAILY [facility] Ondansetron HCl (Zofran Inj) 4 mg IV.PUSH Q6H PRN PRN Reason: NAUSEA Pantoprazole Sodium (Protonix) 40 mg PO DAILY [facility] Sodium Chloride (Ns Flush) 2 ml IV.FLUSH UNSCH PRN PRN Reason: FLUSH AFTER USING IV ACCESS Last Admin: 05/09/18 14:23 Dose: 2 ml Sodium Chloride (Ns Flush) 2 ml IV.FLUSH BID [facility] Sodium Chloride (Ns Flush) 2 ml IV.FLUSH PRN PRN PRN Reason: FLUSH AFTER USING IV ACCESS Allergies Allergy/AdvReac Type Severity Reaction Status Date / Time No Known Allergies Allergy Verified 05/09/18 13:29 Home Medications Medication Instructions Recorded Confirmed Type amlodipine 5 mg PO DAILY 05/09/18 05/09/18 History clopidogrel 75 mg PO DAILY 05/09/18 05/09/18 History lisinopril 5 mg PO DAILY 05/09/18 05/09/18 History Exam Vital signs: Vital Signs 05/09/18 13:26 05/09/18 14:02 05/09/18 14:04 Temperature 97.4 F L Pulse Rate 100 H 97 H Respiratory Rate 20 20 Blood Pressure 206/97 H 158/79 H Pulse Oximetry 99 97 97 05/09/18 15:24 05/09/18 16:55 Temperature Pulse Rate 82 82 Respiratory Rate 20 20 Blood Pressure 147/73 H 169/79 H Pulse Oximetry 97 96 Intake & Output 05/08/18 05/09/18 05/09/18 18:59 06:59 18:59 Weight 83.915 kg Narrative: GENERAL: This is a well-nourished, well-developed patient, in no apparent distress. Patient speaks in clear complete sentences. Patient is pleasant. HEENT: Head is atraumatic and normocephalic. Neck is supple without lymphadenopathy and trachea is midline. No JVD or carotid bruits. CARDIOVASCULAR: Regular rate and rhythm without murmurs, gallops, or rubs. RESPIRATORY: Clear to auscultation. Breath sounds equal bilaterally. No wheezes , rales, or rhonchi. Chest wall is nontender. No use of accessory muscles. GASTROINTESTINAL: Abdomen is nontender, nondistended. Abdomen soft. No obvious pulsatile mass or bruit. No CVA tenderness. Strong femoral pulses bilaterally. Normal bowel sounds in all quadrants. MUSCULOSKELETAL: Patient is moving upper and lower extremities freely. No calf tenderness or edema, no Homans sign. Strong pulses in upper and lower extremities. NEUROLOGICAL: Patient is alert and oriented. Cranial nerves 2-12 are grossly intact. No focal deficits and speech is clear. SKIN: No rash and turgor is normal. Results 05/09/18 13:50 05/09/18 13:50 Cardiac Enzymes 05/09/18 Range/Units 13:50 AST 19 (15-37) U/L Troponin I Less than 0.02 L (0.02-0.05) ng/mL Coagulation 05/09/18 Range/Units 13:50 PT 9.8 (9.8-11.6) sec APTT 28.7 (24.3-30.1) sec CBC 05/09/18 Range/Units 13:50 WBC 5.9 (4.0-11.0) th/mm3 RBC 4.76 (4.00-5.30) mil/mm3 Hgb 14.3 (11.6-15.3) gm/dL Hct 43.2 (35.0-46.0) % Plt Count 216 (150-450) th/mm3 Neut # (Auto) 3.4 (1.8-7.7) th/mm3 Lymph # (Auto) 1.9 (1.0-4.8) th/mm3 [place] # (Auto) 0.4 (0.0-0.9) th/mm3 Eos # (Auto) 0.2 (0.0-0.4) th/mm3 Baso # (Auto) 0.0 (0.0-0.2) th/mm3 Comprehensive Metabolic Panel 05/09/18 Range/Units 13:50 Sodium 142 (136-145) meq/L Potassium 4.0 (3.5-5.1) meq/L Chloride 109 H (98-107) meq/L Carbon Dioxide 24.4 (21.0-32.0) meq/L BUN 16 (7-18) mg/dL Creatinine 0.79 (0.50-1.00) mg/dL Calcium 8.9 (8.5-10.1) mg/dL AST 19 (15-37) U/L ALT 27 (10-53) U/L Alkaline Phosphatase 69 (45-117) U/L Total Protein 7.9 (6.4-8.2) g/dL Albumin 4.2 (3.4-5.0) g/dL Intake and Output 05/09/18 05/09/18 05/09/18 06:59 14:59 22:59 Other: Weight 83.915 kg Patient Weight 05/10/18 06:59 Weight 83.915 kg - Imaging and Cardiology Imaging: Impressions Chest X-Ray 05/09/18 13:45 CONCLUSION: Negative examination. EKG interpretations - EKG EKG shows: sinus rhythm (EKG is left bundle branch block. This was on prior EKG as well.) Caprini VTE Risk Assessment Caprini VTE Risk Assessment: Moderate/High Risk (score >= 2) Caprini Risk Assessment Model: Point Value = 1 Point Value = 2 Point Value = 3 Point Value = 5 Age 41-60 Minor surgery BMI > 25 kg/m2 Swollen legs Varicose veins or History of unexplained or recurrent spontaneous Oral contraceptives or hormone replacement Sepsis (< 1 month) Serious lung disease, including pneumonia (< 1 month) Abnormal pulmonary function Acute myocardial infarction Congestive heart failure (< 1 month) History of inflammatory bowel disease Medical patient at bed rest Age 61-74 Arthroscopic surgery Major open surgery (> 45 min) Laparoscopic surgery (> 45 min) Malignancy Confined to bed (> 72 hours) Immobilizing plaster cast Central venous access Age >= 75 History of VTE Family history of VTE Factor V Leiden Prothrombin [id number] Lupus anticoagulant Anticardiolipin antibodies Elevated serum homocysteine Heparin-induced thrombocytopenia Other congenital or acquired thrombophilia Stroke (< 1 month) Elective arthroplasty Hip, pelvis, or leg fracture Acute spinal cord injury (< 1 month) Prophylaxis Regimen: Total Risk Factor Score Risk Level Prophylaxis Regimen 0-1 Low Early ambulation 2 Moderate Order ONE of the following: *Sequential Compression Device (SCD) *Heparin 5000 units SQ BID 3-4 Higher Order ONE of the following medications: *Heparin 5000 units SQ TID *Enoxaparin/Lovenox 40 mg SQ daily (WT < 150 kg, CrCl > 30 mL/min) *Enoxaparin/Lovenox 30 mg SQ daily (WT < 150 kg, CrCl > 10-29 mL/min) *Enoxaparin/Lovenox 30 mg SQ BID (WT < 150 kg, CrCl > 30 mL/min) AND/OR *Sequential Compression Device (SCD) 5 or more Highest Order ONE of the following medications: *Heparin 5000 units SQ TID (Preferred with Epidurals) *Enoxaparin/Lovenox 40 mg SQ daily (WT < 150 kg, CrCl > 30 mL/min) *Enoxaparin/Lovenox 30 mg SQ daily (WT < 150 kg, CrCl > 10-29 mL/min) *Enoxaparin/Lovenox 30 mg SQ BID (WT < 150 kg, CrCl > 30 mL/min) AND *Sequential Compression Device (SCD) Assessment and Plan - Assessment (1) Chest pain Code(s): R07.9 - Chest pain, unspecified Status: Acute (2) CAD (coronary artery disease) Code(s): I25.10 - Atherosclerotic heart disease of [place] coronary artery without angina pectoris Status: Acute (3) History of heart artery stent Code(s): Z95.5 - Presence of coronary angioplasty implant and graft Status: Acute (4) Hypertension Code(s): I10 - Essential (primary) hypertension Status: Acute (5) Hyperlipidemia Code(s): E78.5 - Hyperlipidemia, unspecified Status: Acute - Plan * Chest pain: Patient will continue to have serial cardiac enzymes and EKGs for ruling out purposes. She will be seen by Dr. Nicole of cardiology in the chest pain center in the morning. Likely will proceed with Lexiscan if she rules out. Patient would be discharged home if her stress test is nonischemic with instructions to follow-up with her weapons and tactics instructor and primary care physician. Return to ED for interval issues. She has been advised to discuss statin therapy with her weapons and tactics instructor as well. * History of CAD: Patient history of CAD with 2 stents to the RCA. Recent likely to have a Lexiscan in the morning if her troponins do not elevate. She will need follow-up with her weapons and tactics instructor. * Hypertension: Continue medication. * Hyperlipidemia: Patient should restart her statin therapy and discussed this with her weapons and tactics instructor. Patient is stable at this time. She is agreeable to this plan.
[2018-05-09 19:19] LABS: Troponin I 0.02 ng/mL (0.02-0.05)
[2018-05-09 20:17] VITALS: RESP 16
[2018-05-09 21:51] LABS: Creatine Kinase 68 U/L (26-192)
--- NOTE | 2018-05-09 23:40 | ECG ---
Date Performed: 05/09/2018 Time Performed: 13:49:51 PTAGE: 63 years EKG: Sinus rhythm LEFT BUNDLE BRANCH BLOCK ABNORMAL ECG PREVIOUS TRACING : 03/28/2017 20.42 Since the previous tracing, no significant change noted DOCTOR: Alon Sutton Interpretating Date/Time 05/09/2018 23:39:55
[2018-05-10 08:20] VITALS: BP 124/75; TEMP 97.9; O2SAT 99
[2018-05-10] MEDS ORDERED: amLODIPine 5 MG Tablet PO SCH (09:00)
[2018-05-10] MEDS ORDERED: Lisinopril 5 MG Tablet PO SCH (09:00)
[2018-05-10] MEDS ORDERED: Aspirin 325 MG Tablet PO SCH (09:00)
[2018-05-10 10:56] VITALS: PULSE 73
[2018-05-10] MEDS ORDERED: Regadenoson Inj 0.4 MG/5 ML Syringe IV.PUSH ONE (10:59)
--- NOTE | 2018-05-10 11:59 | NM ---
EXAM DATE: 05/10/2018 11:48 AM EDT AGE/SEX: 63 years / Female INDICATIONS:Angina. Left bundle branch block Chest pain. CLINICAL DATA: This is the patient's initial encounter. Patient reports that signs and symptoms have been present for 1 day and indicates a pain score of 2/10. MEDICAL/SURGICAL HISTORY: Cardiovascular disease. Hypertension. Coronary artery stent. COMPARISON: No prior exams available for comparison. DOSE: 8.1 mCi Tc 99m Myoview at rest 26.3 mCi Lx55s-Ulnaiop at stress 0.4 mg Lexiscan STRESS SYMPTOMS: Short of breath. EJECTION FRACTION: >70 % TECHNIQUE: The patient underwent pharmacologic stress with infusion of prescribed dose. Continuous ECG tracing was monitored during stress. Gated SPECT imaging was performed after stress and conventi onal SPECT imaging was performed at rest. The examination was performed on a SPECT/CT scanner, both attenuation and non-corrected datasets were reviewed. FINDINGS: Distribution: The maximum perfused segment at stress is in the anterolateral wall. Perfusion Study: Mildly diminished inferoapical perfusion without redistribution Gated Study: There are intact wall motion and wall thickening without hypokinetic or dyskinetic segm ents. The ejection fraction is calculated at >70%. RISK CATEGORY: Low (<1% Annual Motality Rate) CONCLUSION: Small fixed inferoapical perfusion abnormality Electronically signed by: Nima Guan MD 05/10/2018 11:58 AM EDT
--- NOTE | 2018-05-10 12:00 | TR ---
Date Performed: 05/10/2018 Time Performed: 11:00:15 DOCTOR: Micah Nicole DRUG LIST: CLINICAL HISTORY: REASON FOR TEST: REASON FOR ENDING: OBSERVATION: CONCLUSION: COMMENTS: Lexiscan stress test was performed under standard four minute protocol. Radionuclide was injected one minute prior to ending the test. No electrocardiographic abormalities were present t o suggest ischemia. Nuclear imaging and interpretation are pending.
--- NOTE | 2018-05-10 12:03 | ECG ---
Date Performed: 05/09/2018 Time Performed: 20:13:46 PTAGE: 63 years EKG: Sinus rhythm MARKED LEFT AXIS DEVIATION LEFT BUNDLE BRANCH BLOCK ABNORMAL ECG PREVIOUS TRACING : 05/09/2018 13.49 Since previous tracing, no significant change noted DOCTOR: Micah Nicole Interpretating Date/Time 05/10/2018 12:02:10
--- NOTE | 2018-05-10 12:03 | ECG ---
Date Performed: 05/09/2018 Time Performed: 17:27:44 PTAGE: 63 years EKG: Sinus rhythm LEFT BUNDLE BRANCH BLOCK ABNORMAL ECG Since PREVIOUS TRACING , no significant change noted DOCTOR: Micah Nicole Interpretating Date/Time 05/10/2018 12:02:59
== END 2018-05-10 13:20 | disposition home or self-care (01) ==
LOC: NEDA 13:23 → NEPC 13:23 → NEDA 17:04 → NEPFCDU 17:13